=== PATIENT | male | born 1970 | race Caucasian/White ===

== ENCOUNTER → 2019-12-02 16:49 | Outpatient (CLI) | payer MEDICARE, SELFPAY ==
[2019-12-02 17:34] LABS: Basophils % 0.4 % (0.1-2.0); Eosinophils # 0.2 K/mm3 (0.0-0.4); Eosinophils % 1.6 % (0.1-12.0); Hematocrit 43.2 % (42.0-52.0); Hemoglobin 13.8 g/dL (14.1-18.0); Lymphocytes # 2.8 K/mm3 (0.7-4.5); Lymphocytes % 28.1 % (10-50); Mean Corpuscular HGB Conc 31.9 g/dL (31.8-35.4); Mean Corpuscular Volume 94.1 fl (80-94); Mean Platelet Volume 9.2 fl (7.4-10.4); Monocytes # 0.4 K/mm3 (0.1-1.0); Monocytes % 4.3 % (1.7-9.3); Neutrophils # 6.6 K/mm3 (1.8-7.8); Neutrophils % 65.7 % (37.0-80.0); Platelet Count 339 K/mm3 (142-424); Red Cell Distribution Width 13.7 % (11.5-17.5); White Blood Count 10.1 K/mm3 (4.8-10.8)
[2019-12-02 17:37] LABS: Chloride 101 mmol/L (98-107)
[2019-12-02 17:38] LABS: Potassium 4.5 mmoL/L (3.5-5.1); Sodium 141 mmol/L (136-145)
[2019-12-02 17:40] LABS: Alanine Aminotransferase 21 U/L (12-78); Alkaline Phosphatase 73 U/L (38-126); Aspartate Amino Transferase 30 U/L (17-59); Bilirubin,Total 0.3 mg/dl (0.2-1.3); Blood Urea Nitrogen 18 mg/dl (9-20); Estimated Glomerular Filt Rate 90 ml/min (>60); GFR (African American) 109 ML/MIN (>60)
[2019-12-02 17:41] LABS: Albumin Level 4.8 g/dl (3.5-5.0); Albumin/Globulin Ratio 1.7 (1.1-1.8); Anion Gap 15.5 mEq/L (5-15); Calcium 10.4 mg/dl (8.4-10.2); Carbon Dioxide 29 mmol/L (22.0-30.0); Chol/HDL Ratio 3.9 (1-3.5); Cholesterol 179 mg/dl (140-200); Globulin 2.8 g/dL (1.3-3.2); Glucose 83 mg/dl (74-100); HDL Cholesterol 46 mg/dl (40-60); Total Protein,Serum 7.6 g/dl (6.3-8.2); Triglycerides 86 mg/dl (30-150); Uric Acid 7.9 mg/dl (3.5-8.5); VLDL Cholesterol 17 mg/dL (0-40)
[2019-12-02 17:47] LABS: C-Reactive Protein 8.4 mg/L (0-4)
[2019-12-02 17:52] LABS: Direct LDL Cholesterol 110.63 mg/dL (100-129)
[2019-12-02 17:58] LABS: Free T4 (Free Thyroxine) 1.22 ng/dl (0.78-2.19)
[2019-12-02 18:12] LABS: Thyroid Stimulating Hormone 0.07 uIU/mL (0.465-4.68)
[2019-12-02 18:22] LABS: Erythrocyte Sedimentation Rate 15 mm/hr (0-15)
[2019-12-04 13:41] LABS: Anti-Centromere B Antibodies <0.2 AI (0.0-0.9); Anti-Jo-1 <0.2 AI (0.0-0.9); Anti-Smith Antibody <0.2 AI (0.0-0.9); Antichromatin Antibodies <0.2 AI (0.0-0.9); Antiscleroderma-70 Antibodies <0.2 AI (0.0-0.9); RNP Antibodies <0.2 AI (0.0-0.9); Sjogren's Anti-SS-A <0.2 AI (0.0-0.9); Sjogren's Anti-SS-B <0.2 AI (0.0-0.9)
[2019-12-04 15:44] LABS: Anti-DNA (DS) Ab Qn <1 IU/mL (0-9); PSA, Free 0.22 ng/mL; Prostate Specific Ag 0.4 ng/mL (0.0-4.0); RA Latex Turbid. <10.0 IU/mL (0.0-13.9); Vitamin D 25 Hydroxy 58.5 ng/mL (30.0-100.0)
[2019-12-05 04:41] LABS: Anti-Cyclic Citrullinated Pept 9 units (0-19)
[2019-12-07 14:05] LABS: Antinuclear Antibodies, IFA Negative (.)
== END ==
PROVIDERS: Visit Provider Emergency Medicine
DX: R53.83 Other fatigue (principal); E78.5 Hyperlipidemia, unspecified; I10 Essential (primary) hypertension; M54.9 Dorsalgia, unspecified; M25.50 Pain in unspecified joint; K21.9 Gastro-esophageal reflux disease without esophagitis; F32.9 Major depressive disorder, single episode, unspecified; Z72.0 Tobacco use
CPT/HCPCS: 80053; 80061; 82652; 84153; 84154; 84436; 84439; 84443; 84550; 85025; 85651; 86038; 86140; 86200; 86225; 86235; 86431

== ENCOUNTER → 2020-01-19 17:11 | Outpatient (CLI) | payer MEDICARE, SELFPAY ==
[2020-01-19 18:47] LABS: T4 (Thyroxine) 10.8 ug/dl (5.53-11.0)
[2020-01-19 19:01] LABS: Thyroid Stimulating Hormone 0.04 uIU/mL (0.465-4.68)
== END ==
PROVIDERS: Visit Provider Nurse Practitioner Family
DX: E78.00 Pure hypercholesterolemia, unspecified (principal); F32.9 Major depressive disorder, single episode, unspecified; R63.4 Abnormal weight loss
CPT/HCPCS: 84436; 84443

== ENCOUNTER → 2020-01-26 13:27 | Outpatient (CLI) | payer MEDICARE, SELFPAY ==
[2020-01-26 14:35] LABS: Thyroid Stimulating Hormone 0.08 uIU/mL (0.465-4.68)
== END ==
PROVIDERS: Visit Provider Emergency Medicine
DX: Z00.00 Encounter for general adult medical examination without abnormal findings (principal); E78.00 Pure hypercholesterolemia, unspecified; Z79.899 Other long term (current) drug therapy
CPT/HCPCS: 84443

== ENCOUNTER → 2020-01-28 10:04 | Outpatient (CLI) | payer MEDICARE, SELFPAY ==
--- NOTE | 2020-01-28 10:08 | XR_ITS ---
PROCEDURE: XR CHEST 2V CLINICAL HISTORY: tobacco use / weight loss COMPARISON: CXR CHEST(2 VIEWS-NOT PORTABLE) from 10/06/2015 CXR CHEST(2 VIEWS-NOT PORTABLE) from 01/31/2016 CXR CHEST(2 VIEWS-NOT PORTABLE) from 02/05/2016 CXR CHEST(2 VIEWS-NOT PORTABLE) from 05/11/2016 FINDINGS: The cardiomediastinal silhouette and pulmonary vascularity are within normal limits. The lungs are clear without infiltrates, suspicious nodules, or pleural effusions. There is hyperinflation consistent with COPD There is an azygos fissure as a normal variant. There is mild chronic wedging involving T7 IMPRESSION: COPD. No change with no acute finding Dictated by: Aristides Palafox MD 01/28/2020 11:16 Electronically signed by Aristides Palafox MD in [place] 01/28/2020 11:16
== END ==
PROVIDERS: PCP Emergency Medicine; Visit Provider Emergency Medicine
DX: R63.4 Abnormal weight loss (principal); Z72.0 Tobacco use
CPT/HCPCS: 71046

== ENCOUNTER → 2020-02-01 08:13 | Outpatient (CLI) | payer MEDICARE, SELFPAY ==
--- NOTE | 2020-02-01 08:13 | CT_ITS ---
PROCEDURE: CT CHEST WO CON CLINICAL INDICATION: tobacco use / weight loss COMPARISON: CXR CHEST(2 VIEWS-NOT PORTABLE) from 05/11/2016 TECHNIQUE: Axial images obtained with sagittal and coronal reformats. All CT scans at the facility use one or more dose reduction, viz: automated exposure control, ma/kV adjustment per patient size (including targeted exams where dose is matched to indication, i.e. head), or iterative reconstruction technique. FINDINGS: HEART AND MEDIASTINAL STRUCTURES: Unremarkable. LUNGS AND PLEURAL SPACES: COPD . There is an azygos fissure as a normal variant. There is evidence of old granulomatous disease. No lobar consolidation or collapse. There are 3 mm subpleural nodular opacities in the left upper lobe and right upper lobe nonspecific. On close inspection there is faint increased density of the pulmonary lobular units with sparing along the periphery of the christopher its. This is of questionable clinical significance. This pulmonary septa do not appear thickened. No lobar consolidation or collapse. BONY STRUCTURES: There is chronic wedging involving the T7 vertebral body with loss of height anteriorly of 50 percent UPPER ABDOMEN: Unremarkable. ADDITIONAL FINDINGS: No other significant abnormalities. IMPRESSION: 1. There is some hyperinflation. There is prominence of the anterior clear space. These findings may be related to COPD. 2. Faint increased density of the pulmonary lobules with sparing along the periphery. This is diffuse and is of questionable clinical significance and is without septal thickening with faint ground-glass attenuation and could be seen with edema, hypersensitivity pneumonitis, heart failure, nonspecific interstitial pneumonia, drug exposure/chemical exposure.. Dictated by: Aristides Palafox MD 02/02/2020 13:03 Electronically signed by Aristides Palafox MD in [place] 02/02/2020 13:03
== END ==
PROVIDERS: PCP Emergency Medicine; Visit Provider Emergency Medicine
DX: R63.4 Abnormal weight loss (principal); Z72.0 Tobacco use
CPT/HCPCS: 71250

== ENCOUNTER → 2020-02-04 10:29 | Outpatient (CLI) | payer MEDICARE, SELFPAY ==
--- NOTE | 2020-02-04 10:34 | MR_ITS ---
PROCEDURE: MR LUMBAR SPINE WO CON CLINICAL INDICATION: back pain Low back pain with bilateral leg pain numbness and tingling right worse than left COMPARISON: [facility]/O MRI-L-SPINE W/O from 02/11/2015 TECHNIQUE: Standard multiplanar multiecho sequences are performed without contrast. 3-D MIP and myelographic images are also rendered and reviewed FINDINGS: There is normal alignment. The spinal cord ends at the T12-L1 level. T12-L1, L1-L2 and L2-L3 have an unremarkable appearance. L3-L4: There is mild concentric bulging disc with mild bilateral foraminal narrowing. L4-5: Degenerate disc disease with bulging disc with mild facet and ligamentum hypertrophy with mild bilateral foraminal narrowing. There is a small annular fissure posteriorly L5-S1: Degenerate disc disease with bulging disc very slightly eccentric toward the left with minimal left paracentral disc protrusion which abuts the anterior medial aspect of the left S1 nerve root. Mild left lateral recess narrowing and mild bilateral foraminal narrowing. No canal stenosis or extruded herniated disc evident. IMPRESSION: 1. L3-L4: There is mild concentric bulging disc with mild bilateral foraminal narrowing. 2. L4-5: Degenerate disc disease with bulging disc with mild facet and ligamentum hypertrophy with mild bilateral foraminal narrowing. There is a small annular fissure posteriorly 3. L5-S1: Degenerate disc disease with bulging disc very slightly eccentric toward the left with minimal left paracentral disc protrusion which abuts the anterior medial aspect of the left S1 nerve root. Mild left lateral recess narrowing and mild bilateral foraminal narrowing. 4. Overall no significant change from the previous exam Dictated by: Aristides Palafox MD 02/05/2020 12:02 Electronically signed by Aristides Palafox MD in [place] 02/05/2020 12:02
== END ==
PROVIDERS: PCP Emergency Medicine; Visit Provider Emergency Medicine
DX: M54.9 Dorsalgia, unspecified (principal); M54.5 Low back pain
CPT/HCPCS: 72148; 76376

== ENCOUNTER → 2020-03-04 11:18 | Outpatient (CLI) | payer MEDICARE, SELFPAY ==
[2020-03-04 11:21] LABS: MANUAL DIFFERENTIAL MANUAL DIFFERENTIAL (MANUAL DIFF)
[2020-03-04 11:42] LABS: Basophils % 0.4 % (0.1-2.0); Eosinophils # 0.2 K/mm3 (0.0-0.4); Eosinophils % 1.8 % (0.1-12.0); Hematocrit 41.2 % (42.0-52.0); Hemoglobin 13.9 g/dL (14.1-18.0); Lymphocytes # 2.5 K/mm3 (0.7-4.5); Lymphocytes % 21.5 % (10-50); Mean Corpuscular HGB Conc 33.8 g/dL (31.8-35.4); Mean Corpuscular Hemoglobin 32.5 pg (27.0-31.2); Mean Corpuscular Volume 96.2 fl (80-94); Mean Platelet Volume 7.5 fl (7.4-10.4); Monocytes # 0.5 K/mm3 (0.1-1.0); Neutrophils # 8.3 K/mm3 (1.8-7.8); Neutrophils % 72.4 % (37.0-80.0); Platelet Count 297 K/mm3 (142-424); Red Blood Count 4.28 M/mm3 (4.60-6.20); Red Cell Distribution Width 13.9 % (11.5-17.5); White Blood Count 11.4 K/mm3 (4.8-10.8)
[2020-03-04 12:13] LABS: Eosinophils % 1 % (0-3); Lymphocytes % 25 % (10-50); Monocytes % 2 % (2-9); Neutrophils % 70 % (42-76); Platelet Estimate Normal; RBC Morphology Normal; Total Cells Counted 100
[2020-03-04 14:13] LABS: Alanine Aminotransferase 22 U/L (12-78); Albumin Level 4.7 g/dl (3.5-5.0); Albumin/Globulin Ratio 1.7 (1.1-1.8); Alkaline Phosphatase 71 U/L (38-126); Anion Gap 11.7 mEq/L (5-15); Aspartate Amino Transferase 34 U/L (17-59); Bilirubin,Total 0.3 mg/dl (0.2-1.3); Blood Urea Nitrogen 14 mg/dl (9-20); Calcium 10.2 mg/dl (8.4-10.2); Carbon Dioxide 34 mmol/L (22.0-30.0); Chloride 98 mmol/L (98-107); Estimated Glomerular Filt Rate 103 ml/min (>60); GFR (African American) 124 ML/MIN (>60); Globulin 2.7 g/dL (1.3-3.2); Glucose 106 mg/dl (74-100); Potassium 4.7 mmoL/L (3.5-5.1); Sodium 139 mmol/L (136-145); Total Protein,Serum 7.4 g/dl (6.3-8.2)
[2020-03-04 14:41] LABS: Thyroid Stimulating Hormone 0.22 uIU/mL (0.465-4.68)
[2020-03-05 07:31] LABS: Thyroid Peroxidase Antibodies <9 IU/mL (0-34)
[2020-03-07 14:39] LABS: Thyroid Stimulating Immunoglob <0.10 IU/L (0.00-0.55)
== END ==
PROVIDERS: Visit Provider Otolaryngology
DX: R63.4 Abnormal weight loss (principal); E05.90 Thyrotoxicosis, unspecified without thyrotoxic crisis or storm
CPT/HCPCS: 36415; 80053; 84439; 84443; 84445; 84481; 85007; 85014; 85018; 85048; 85049; 86376

== ENCOUNTER → 2020-03-09 12:45 | Outpatient (CLI) | payer MEDICARE, SELFPAY ==
--- NOTE | 2020-03-09 14:09 | US_ITS ---
PROCEDURE: US THYROID CLINICAL INDICATION: hyperthyroid COMPARISON: No exams were available for comparison FINDINGS: Right lobe: 4.1 x 1.61 cm. There is a mixed 3 mm nodule in the upper aspect right lobe. Questionable nodular area lower pole at 8 mm. This may only represent some heterogeneous echogenicity. Follow-up is suggested. Left lobe: 4.2 x 1.2 x 1.2 cm Isthmus: Unremarkable Additional findings: IMPRESSION: Questionable 8 mm nodule in the right. Suggest 6 month follow-up. 3 mm mixed nodule upper pole on the right otherwise negative Dictated by: Aristides Palafox MD 03/09/2020 15:21 Electronically signed by Aristides Palafox MD in [place] 03/09/2020 15:21
[2020-03-09 14:15] VITALS: PULSE 67; PULSE 70
== END ==
PROVIDERS: PCP Emergency Medicine; Visit Provider Emergency Medicine
DX: E05.90 Thyrotoxicosis, unspecified without thyrotoxic crisis or storm; J44.9 Chronic obstructive pulmonary disease, unspecified
CPT/HCPCS: 76536; 94060; 94618; 94640

== ENCOUNTER → 2020-09-09 15:10 | Outpatient (CLI) | payer MEDICARE, SELFPAY | PROVIDERS: PCP Emergency Medicine; Visit Provider Emergency Medicine | DX: R42 Dizziness and giddiness (principal) ==

== ENCOUNTER → 2020-11-30 13:40 | Outpatient (CLI) | payer MEDICARE, SELFPAY ==
[2020-11-30 13:51] LABS: Chloride 105 mmol/L (98-107); Sodium 143 mmol/L (136-145)
[2020-11-30 13:52] LABS: Potassium 4.4 mmoL/L (3.5-5.1)
[2020-11-30 13:54] LABS: Alanine Aminotransferase 18 U/L (12-78); Alkaline Phosphatase 73 U/L (38-126); Anion Gap 12.4 mEq/L (5-15); Aspartate Amino Transferase 28 U/L (17-59); Bilirubin,Total 0.4 mg/dl (0.2-1.3); Blood Urea Nitrogen 12 mg/dl (9-20); Carbon Dioxide 30 mmol/L (22.0-30.0); Estimated Glomerular Filt Rate 79 ml/min (>60); GFR (African American) 96 ML/MIN (>60)
[2020-11-30 13:55] LABS: Albumin Level 4.4 g/dl (3.5-5.0); Albumin/Globulin Ratio 1.6 (1.1-1.8); Calcium 9.5 mg/dl (8.4-10.2); Chol/HDL Ratio 3.6 (1-3.5); Cholesterol 168 mg/dl (140-200); Globulin 2.8 g/dL (1.3-3.2); Glucose 94 mg/dl (74-100); HDL Cholesterol 47 mg/dl (40-60); Total Protein,Serum 7.2 g/dl (6.3-8.2); Triglycerides 53 mg/dl (30-150); VLDL Cholesterol 11 mg/dL (0-40)
[2020-11-30 14:06] LABS: Direct LDL Cholesterol 107.69 mg/dL (100-129)
[2020-11-30 14:11] LABS: 25-OH Vitamin D, Total 23.3 ng/mL (30-100)
[2020-11-30 14:24] LABS: Basophils # 0.1 K/mm3 (0-0.2); Basophils % 0.8 % (0.1-2.0); Eosinophils # 0.2 K/mm3 (0.0-0.4); Eosinophils % 2.6 % (0.1-12.0); Hematocrit 40.7 % (42.0-52.0); Lymphocytes % 25.4 % (10-50); Mean Corpuscular HGB Conc 32.1 g/dL (31.8-35.4); Mean Corpuscular Volume 96.6 fl (80-94); Mean Platelet Volume 9.2 fl (7.4-10.4); Monocytes # 0.4 K/mm3 (0.1-1.0); Monocytes % 5.5 % (1.7-9.3); Neutrophils # 5.1 K/mm3 (1.8-7.8); Neutrophils % 65.8 % (37.0-80.0); Platelet Count 316 K/mm3 (142-424); Red Blood Count 4.21 M/mm3 (4.60-6.20); Red Cell Distribution Width 14.1 % (11.5-17.5); White Blood Count 7.7 K/mm3 (4.8-10.8)
[2020-11-30 14:26] LABS: Thyroid Stimulating Hormone 0.72 uIU/mL (0.465-4.68)
[2020-11-30 17:52] LABS: Erythrocyte Sedimentation Rate 15 mm/hr (0-15)
== END ==
PROVIDERS: Visit Provider Emergency Medicine
DX: R53.83 Other fatigue (principal); E78.00 Pure hypercholesterolemia, unspecified; E55.9 Vitamin D deficiency, unspecified
CPT/HCPCS: 80053; 80061; 82306; 84439; 84443; 85025; 85651

== ENCOUNTER → 2020-12-06 09:19 | Outpatient (CLI) | payer MEDICARE, SELFPAY ==
--- NOTE | 2020-12-06 09:25 | XR_ITS ---
PROCEDURE: XR HIP LT 2-3V W/PELVIS CLINICAL INDICATION: hip pain COMPARISON: CR XR HIP RT 2-3V W/PELVIS from 12/06/2020 FINDINGS: Left hip: No fracture or dislocation. A small lucency is present along the femoral neck laterally measuring 4 mm nonspecific. This is only seen on the abduction view. Right hip: Unremarkable. IMPRESSION: 1. Negative right hip. 2. Small lucency left femoral neck laterally. This is nonspecific. Consider follow-up confirm stability otherwise negative. Dictated by: Aristides Palafox MD 12/06/2020 16:25 Aristides Palafox MD in [place] 12/06/2020 16:25
== END ==
PROVIDERS: PCP Emergency Medicine; Visit Provider Emergency Medicine
DX: M25.552 Pain in left hip (principal); M25.551 Pain in right hip
CPT/HCPCS: 73502

== ENCOUNTER → 2020-12-09 08:14 | Outpatient (CLI) | payer MEDICARE, SELFPAY ==
--- NOTE | 2020-12-09 08:15 | US_ITS ---
PROCEDURE: US THYROID CLINICAL INDICATION: abnormal thyroid ultrasound 6 months ago Follow-up thyroid nodules COMPARISON: US US THYROID from 03/09/2020 FINDINGS: Right lobe: 4.2 x 1.4 x 1 cm. There is a small mixed nodule in the upper pole posteriorly 4 mm unchanged. Isoechoic nodular areas present in the mid polar region at 8 mm unchanged. Left lobe: 4.1 x 1.5 x 1.1 cm. Homogeneous echogenicity. Isthmus: Unremarkable Additional findings: IMPRESSION: Stable appearance of the thyroid gland. Hyperechoic nodules present on the right unchanged. No suspicious abnormalities apparent. Dictated by: Aristides Palafox MD 12/10/2020 10:07 Aristides Palafox MD in [place] 12/10/2020 10:07
== END ==
PROVIDERS: PCP Emergency Medicine; Visit Provider Emergency Medicine
DX: R93.89 Abnormal findings on diagnostic imaging of other specified body structures (principal)
CPT/HCPCS: 76536

== ENCOUNTER → 2021-03-15 07:45 | Outpatient (CLI) | payer MEDICARE, SELFPAY | PROVIDERS: PCP Emergency Medicine; Visit Provider Emergency Medicine | DX: M54.2 Cervicalgia (principal) ==

== ENCOUNTER → 2021-03-16 15:37 | Outpatient (CLI) | payer MEDICARE, SELFPAY ==
--- NOTE | 2021-03-16 15:37 | MR_ITS ---
PROCEDURE: MR CERVICAL SPINE WO CON CLINICAL INDICATION: neck pain Neck pain [id number]. Headaches. No injury or trauma. COMPARISON: No exams were available for comparison TECHNIQUE: Standard multiplanar multiecho sequences are performed without contrast. 3-D MIP and myelographic images are also rendered and reviewed FINDINGS: There is normal alignment. Craniocervical junction has an unremarkable appearance. C2-C3: Unremarkable. C3-C4: Minimal broad-based bulging disc with minimal central disc protrusion with mild bilateral lateral recess and foraminal narrowing. There is narrowing of the canal at this level at 10-11 mm. C4-C5: There is a small right paracentral disc protrusion without impingement. Borderline narrowing of the canal. C5-C6: There is a small broad-based left paracentral disc osteophyte complex causing mild left lateral recess and foraminal narrowing. Minimal right uncovertebral hypertrophy. C6-C7: Mild degenerative disc disease with minimal bulging disc. C7-T1: Unremarkable. IMPRESSION: 1. C3-C4: Minimal broad-based bulging disc with minimal central disc protrusion with mild bilateral lateral recess and foraminal narrowing. There is narrowing of the canal at this level at 10-11 mm. 2. C4-C5: There is a small right paracentral disc protrusion without impingement. Borderline narrowing of the canal. 3. C5-C6: There is a small broad-based left paracentral disc osteophyte complex causing mild left lateral recess and foraminal narrowing. Minimal right uncovertebral hypertrophy. 4. C6-C7: Mild degenerative disc disease with minimal bulging disc Dictated by: Aristides Palafox MD 03/17/2021 09:46 Aristides Palafox MD in [place] 03/17/2021 09:46
== END ==
PROVIDERS: PCP Emergency Medicine; Visit Provider Emergency Medicine
DX: M54.2 Cervicalgia (principal)
CPT/HCPCS: 72141; 76376

== ENCOUNTER 2021-06-06 22:30 | Emergency (ER) | payer MEDICARE, SELFPAY ==
--- NOTE | 2021-06-06 22:27 | ECG_ITS ---
APPROVED REPORT Exam: Resting ECG HR:67 bpm ECG Measurements Heart Rate 67 AXES TX 138 P 83 QRSd 90 QRS 67 QT 390 T 74 QTc 412 Conclusion Normal sinus rhythm Normal ECG Electronically signed by : Forrest Burgess MD 06/07/2021 07:28:21
[2021-06-06 22:30] VITALS: BP 155/95; PULSE 69; O2SAT 96
[2021-06-06 22:31] VITALS: BP 145/93; PULSE 71; RESP 16; TEMP 36.9; O2SAT 99; BMI 19.5
--- NOTE | 2021-06-06 22:42 | XR_ITS ---
PROCEDURE INFORMATION: Exam: XR Chest Exam date and time: 06/06/2021 10:42 PM Age: 50 years old Clinical indication: Smoker's cough; Chest pressure; Patient HX: Chest pain off and on for a month; Additional info: Cp TECHNIQUE: Imaging protocol: XR of the chest. Views: 2 views. COMPARISON: CT CHEST WO CON 02/01/2020 8:21 AM FINDINGS: Lungs: Incidentally noted azygos fissure. Hyperinflation suggesting COPD. No airspace consolidation. No pulmonary edema. Pleural spaces: No pleural effusion. No pneumothorax. Heart/Mediastinum: Normal heart size. Bones/joints: Chronic midthoracic wedge compression deformity. IMPRESSION: Hyperinflation suggesting COPD. No acute finding.
[2021-06-06 22:55] LABS: Basophils # 0.1 K/mm3 (0-0.2); Basophils % 0.8 % (0.1-2.0); Eosinophils # 0.3 K/mm3 (0.0-0.4); Eosinophils % 3.3 % (0.1-12.0); Hematocrit 40.7 % (42.0-52.0); Hemoglobin 13.3 g/dL (14.1-18.0); Lymphocytes # 3.4 K/mm3 (0.7-4.5); Lymphocytes % 33.2 % (10-50); Mean Corpuscular HGB Conc 32.7 g/dL (31.8-35.4); Mean Corpuscular Hemoglobin 31.3 pg (27.0-31.2); Mean Platelet Volume 7.2 fl (7.4-10.4); Monocytes # 0.5 K/mm3 (0.1-1.0); Monocytes % 5.2 % (1.7-9.3); Neutrophils # 5.8 K/mm3 (1.8-7.8); Neutrophils % 57.5 % (37.0-80.0); Platelet Count 293 K/mm3 (142-424); Red Blood Count 4.24 M/mm3 (4.60-6.20); White Blood Count 10.1 K/mm3 (4.8-10.8)
[2021-06-06 23:00] VITALS: BP 133/83; PULSE 71; O2SAT 100
[2021-06-06 23:00] LABS: Alanine Aminotransferase 17 U/L (12-78); Albumin Level 4.3 g/dl (3.5-5.0); Albumin/Globulin Ratio 1.5 (1.1-1.8); Alkaline Phosphatase 109 U/L (38-126); Anion Gap 12.8 mEq/L (5-15); Aspartate Amino Transferase 25 U/L (17-59); Blood Urea Nitrogen 14 mg/dl (9-20); Calcium 9.4 mg/dl (8.4-10.2); Carbon Dioxide 31 mmol/L (22.0-30.0); Chloride 101 mmol/L (98-107); Creatinine Clearance Estimated 79 mL/min (50-200); Estimated Glomerular Filt Rate 89 ml/min (>60); GFR (African American) 108 ML/MIN (>60); Globulin 2.8 g/dL (1.3-3.2); Glucose 90 mg/dl (74-100); Potassium 3.8 mmoL/L (3.5-5.1); Sodium 141 mmol/L (136-145); Total Protein,Serum 7.1 g/dl (6.3-8.2)
[2021-06-06 23:06] LABS: Bilirubin,Total 0.1 mg/dl (0.2-1.3)
[2021-06-06 23:19] LABS: Procalcitonin 0.037 ng/mL (0.0-2.0); Troponin I < 0.01 ng/ml (0.00-0.034)
--- NOTE | 2021-06-06 23:26 | [facility].EDCP ---
ED Disposition Clinical Impression: Unstable angina pectoris, Tobacco use, Hypercholesteremia COPD (chronic obstructive pulmonary disease) Qualifiers: COPD type: unspecified COPD Qualified Code(s): J44.9 - Chronic obstructive pulmonary disease, unspecified Disposition: Admitted as Observation Condition on Discharge: Serious - Critical Care Critical Care Time: No Attestation: On 06/06/21, the high probability of a clinically significant, sudden or life threatening deterioration of the following system(s) required my full and direct attention, intervention and personal management. The time I documented below is in addition to time spent performing reported procedures but includes the following listed in this critical care notation. Medical Decision Making - Medical Records Medical records reviewed: Yes: I reviewed the patient's medical records. - Drew Inquiry Pt receiving controlled substance: No Vital Signs: 06/06/21 22:31 Temperature 98.5 F Temperature Source Oral Pulse Rate [Right] 71 Respiratory Rate 16 Blood Pressure [Right Arm] 145/93 H Blood Pressure Mean [Right Arm] 110 02 Sat by Pulse Oximetry 99 - Lab Data Lab results reviewed: Yes: I reviewed the patient's lab results. Lab Results 06/06/21 22:30: WBC 10.1, RBC 4.24 L, Hgb 13.3 L, Hct 40.7 L, MCV 96.0 H, MCH 31.3 H, MCHC 32.7, RDW 13.0, Plt Count 293, MPV 7.2 L, Neut % (Auto) 57.5, Lymph % (Auto) 33.2, [place] % (Auto) 5.2, Eos % (Auto) 3.3, Baso % (Auto) 0.8, Neut # (Auto) 5.8, Lymph # (Auto) 3.4, [place] # (Auto) 0.5, Eos # (Auto) 0.3, Baso # (Auto) 0.1, ESR 20 H 06/06/21 22:30: Sodium 141, Potassium 3.8, Chloride 101, Carbon Dioxide 31 H, Anion Gap 12.8, BUN 14, Creatinine 0.90, Estimated Creat Clear 79, Estimated GFR 89, Est GFR ( Amer) 108, Glucose 90, Calcium 9.4, Total Bilirubin 0.1 L, AST 25, ALT 17, Alkaline Phosphatase 109, Troponin I < 0.01, C-Reactive Protein 2.0, Total Protein 7.1, Albumin 4.3, Globulin 2.8, Albumin/Globulin Ratio 1.5, Procalcitonin 0.037 Result diagrams: 06/06/21 22:30 06/06/21 22:30 Orders (Tests/Meds): ED MEDICATIONS Generic Name Dose Route Start Last Admin Trade Name Freq PRN Reason Stop Dose Admin Sodium Chloride 1,000 mls @ 999 mls/hr 06/06/21 22:45 06/06/21 23:26 Sod Chlor 0.9% 1000ml Bag IV 06/06/21 23:45 999 mls/hr .Q1H1M KASSANDRA Administration Discontinued Medications Generic Name Dose Route Start Last Admin Trade Name Freq PRN Reason Stop Dose Admin Aspirin 324 mg 06/06/21 22:43 06/06/21 23:26 Aspirin 81mg Chewable Tablet PO 06/06/21 22:44 324 mg ONCE ONE Administration Nitroglycerin 0.4 mg 06/06/21 22:43 06/06/21 23:29 Nitroglycerin 0.4mg Sl Tablet SL 06/06/21 22:44 0.4 mg ONCE ONE Administration ORDERS Category Date Time Status Rapid PCR Covid and Flu A/B Stat Lab 06/06/21 00:08 Received Troponin I Q3H Lab 06/07/21 01:45 Ordered Troponin I Q3H Lab 06/07/21 04:45 Ordered - Radiology Data #1 Image(s): Chest Image Reviewed: Yes I have reviewed radiologist's interpretation Preliminary Findings: Abnormal (copd) - ECG Data Tracing #1 Normal Sinus Rhythm: Yes Ischemic changes: non-specific ST-T wave changes Medical Decision Narrative: has what sds like unstable angina - pt with sig risk factors and needs admit and eval Chest Pain HPI - General Chief Complaint: Chest Pain Stated Complaint: chest pains,trimmers Time Seen by Provider: 06/06/21 23:00 Mode of Arrival: Ambulatory Source of Information: Patient, Medical Record Limitations: No Limitations Description of Symptoms (Recalled from ER Triage Doc. by RN): pt c/o chest pain @ intervals that been going on for month - History of Present Illness HPI narrative: this patient presents with episodes of lt ant chest pain over the last month increased in freq occur with activity and assoc with nausea and reports loses color with episodes and last about 10 minutes each
[2021-06-06 23:30] VITALS: BP 120/73; PULSE 70; O2SAT 97
[2021-06-07] VITALS (14 sets, daily range): BP systolic 95–133; BP diastolic 48–85; PULSE 53–78; RESP 16–18; TEMP 36.6; O2SAT 97–100
[2021-06-07 00:01] LABS: Erythrocyte Sedimentation Rate 20 mm/hr (0-15)
--- NOTE | 2021-06-07 00:06 | PC.NURSE ---
Bed assignment requested for admission for this patient. Pt admitted, will hold in ED at this time. ED Staff made aware.
[2021-06-07 00:16] LABS: Coronavirus 19, PCR Not Detected (NotDetected); Influenza A, PCR Not Detected (NotDetected); Influenza B, PCR Not Detected (NotDetected)
[2021-06-07 02:47] LABS: Troponin I < 0.01 ng/ml (0.00-0.034)
--- NOTE | 2021-06-07 05:21 | CA_ITS ---
APPROVED REPORT EXAM: Comprehensive 2D, Doppler, and color-flow Echocardiogram Vascular Ultrasound Technician: Carlene Fuentes RVT Ht: 5 ft 7 in Wt: 00lbs BSA: 0.00 BP: 145/93 mmHg Indications: CP,GERD,COPD,SMOKER,HLD 2D Dimensions LVOT 2.00 cm (M/F) 1.5-2.5 LA Volume 17.00 mL M-Mode Dimensions RVDd 2.23 cm (0.9-2.6) LA Diam 3.16 cm (1.9-4.0) LVDd 3.95 cm (3.5-5.7) Ao Diam 3.05 cm (2.0-3.7) LVDs 2.79 cm (3.5-5.7) IVSd 1.10 cm (0.6-1.1) PWd 0.87 cm (0.6-1.1) EF (Teich) 56.80% FS 29.40% EDV (Teich) 67.90 mL TAPSE 2.58 (<1.7) ESV (Teich) 29.30 mL LV Diastology E Decel Time 187.00 (160-240 msec) E/A Ratio 1.8 MED E' 9.60 (< 7 cm/sec) E'/MED E' Ratio 9.75 (>14) LAT E' 13.30 (<10 cm/sec) E/LAT E' Ratio 7.04 (>14) Aortic Valve AO Peak GR. 4.70 mmHg Mitral Valve MV E Max Pietro. 94.00 (40-130 cm/s) MV A Velocity 52.00 (40-130 cm/s) E/A Ratio 1.81 MV Decel. Time 187.00 (160-240 ms) MV PHT 55.00 ms Pulmonary Valve PV Peak Velocity 44.00 (50-150 cm/s) Tricuspid Valve TR P. Velocity 281.00 cm/s RAP Estimate 10.00 mmHg RVSP 41.50 mmHg Left Ventricle Left atrium is normal size, left ventricle is normal size, there is no concentric left ventricular hypertrophy, visually estimated ejection fraction 55% with no regional wall motion abnormality, diastolic parameters are within normal range. Right Ventricle Right atrium and right ventricle are normal size and contractility. Aortic Valve Aortic valve is grossly normal, there is no aortic stenosis or aortic insufficiency. Mitral Valve Mitral valve is grossly normal, there is trace mitral regurgitation. Tricuspid Valve Tricuspid valve grossly normal, there is trace tricuspid regurgitation, tricuspid regurgitation jet velocity is inadequate for calculation of the right ventricular systolic pressure. Pulmonic Valve Pulmonic valve is poorly visualized. Great Vessels Aortic root is normal size. Pericardium No significant pericardial effusion noted. Conclusion 1. Normal left ventricular size, preserved left ventricular systolic function, visually estimated ejection fraction 55% with no regional wall motion abnormality, diastolic parameters are within normal range. 2. Trace mitral and tricuspid regurgitation. 3. No significant pericardial effusion noted. Electronically signed by : Camron Claudio MD 06/08/2021 10:08:17
[2021-06-07 05:47] LABS: Chol/HDL Ratio 3.6 (1-3.5); Cholesterol 133 mg/dl (140-200); HDL Cholesterol 37 mg/dl (40-60); Magnesium 1.4 mg/dl (1.6-2.3); Triglycerides 68 mg/dl (30-150); VLDL Cholesterol 14 mg/dL (0-40)
[2021-06-07 05:58] LABS: Direct LDL Cholesterol 78.93 mg/dL (100-129)
[2021-06-07 06:00] LABS: Troponin I < 0.01 ng/ml (0.00-0.034)
--- NOTE | 2021-06-07 06:24 | PC.NURSE ---
Sonny GARCIA NOTIFIED OF CONSULT
--- NOTE | 2021-06-07 07:15 | PC.NURSE ---
felicia cartwright in ER speaking with Dr. Sterling about pt
--- NOTE | 2021-06-07 07:44 | HMH.CNCARD ---
History of Present Illness Consult date: 06/07/21 Requesting physician: Dean Sterling Consult reason: chest pain Chief complaint: Unstable angina Additional Medical History:: 1. Tobacco use, continued, 2 packs/day for 30 years A. COPD 2. History of coal mining for 21 years 3. Family history of early coronary artery disease in his mother in her 50s 4. Hyperlipidemia, on statin therapy 5. History of GERD History of present illness: 50-year-old white male with history of tobacco use, family history of heart disease in his mother and hyperlipidemia presented to the emergency department for complaint of chest pain. Patient states he has had these episodes of sharp stabbing chest pain followed by heaviness in the chest with radiation to the left arm and neck with exertion over the last 3 to 4 weeks. Symptoms usually resolve with rest after 5 to 10 minutes. Last evening symptoms occurred and lingered which prompted the patient to come to the ER for further evaluation. He was given a sublingual nitroglycerin with resolution of his symptoms. EKG is sinus rhythm with no acute ST segment changes and troponins thus far have been normal. Cardiology consulted for further evaluation and recommendations. Patient was seen in Dr. Sterling's office yesterday for evaluation of the symptoms and was ordered sublingual nitroglycerin for as needed use but with return of symptoms last evening came to the ER for further evaluation. [facility] History Medical History: Reports:: Anxiety, Chronic Obstructive Pulmonary Disease (COPD), Depression, Gastroesophageal Reflux Disease(GERD), Hyperlipidemia *Have you ever received a pneumonia vaccine?: No *Have you received a flu vaccine this season?: No Laterality Cases: Left: Arthroscopy Knee Other Surgeries: Yes: Other Amputation: No Fractures: No - *Social History Smoking Status: Current every day smoker Tobacco Type: cigarettes # Packs/Day (cigarettes): 1 Alcohol Intake: never Substance Use Type: opiates, former substance user *Occupational Status:: employed Housing: house Household Members: significant other *Travel in the last 8 weeks: None - Psychiatric History Pschychiatric History:: Reports:: Anxiety, Depression Family Hx:: Heart Attack, Diabetes, Hypertension, Hyperlipidemia, Kidney Disease, Stroke, Substance abuse, Alcoholism, Mental illness, Cancer Meds Home Medications Medication Instructions Recorded Confirmed Type Budesonide/Formoterol Fumarate 1 puff INHALATION DAILY 06/06/21 06/06/21 History [Budesonide-Formoterol 80-4.5] Duloxetine HCl [Cymbalta] See Rx Instructions .ROUTE .COMPLEX 06/06/21 06/06/21 History Mirtazapine See Rx Instructions .ROUTE .COMPLEX 06/06/21 06/06/21 History Pantoprazole Sodium See Rx Instructions .ROUTE .COMPLEX 06/06/21 06/06/21 History Simvastatin See Rx Instructions .ROUTE .COMPLEX 06/06/21 06/06/21 History albuterol sulfate 90 mcg/actuation 2 puff INHALATION TID PRN #8.5 g 06/06/21 06/06/21 Rx aerosol inhaler Allergies Allergy/AdvReac Type Severity Reaction Status Date / Time codeine [CODEINE] Allergy Mild Verified 06/06/21 11:38 Exam Vital signs and Labs for Last 24 Hours: Temp Pulse Resp BP Pulse Ox 98.5 F 53 L 16 104/61 L 99 06/06/21 22:31 06/07/21 05:30 06/06/21 22:31 06/07/21 05:30 06/07/21 05:30 Laboratory Results - last 24 hr 01/05/21 00:08: SARS-CoV-2 (PCR) Not detected, Influenza A Untype (PCR) Not detected, Influenza Type B (PCR) Not detected 06/06/21 22:30: WBC 10.1, RBC 4.24 L, Hgb 13.3 L, Hct 40.7 L, MCV 96.0 H, MCH 31.3 H, MCHC 32.7, RDW 13.0, Plt Count 293, MPV 7.2 L, Neut % (Auto) 57.5, Lymph % (Auto) 33.2, [place] % (Auto) 5.2, Eos % (Auto) 3.3, Baso % (Auto) 0.8, Neut # (Auto) 5.8, Lymph # (Auto) 3.4, [place] # (Auto) 0.5, Eos # (Auto) 0.3, Baso # (Auto) 0.1, ESR 20 H 06/06/21 22:30: Sodium 141, Potassium 3.8, Chloride 101, Carbon Dioxide 31 H, Anion Gap 12.8, BUN 14, Creatinine 0.90, Estimated Creat Clear 79, Estimat
--- NOTE | 2021-06-07 08:17 | HMH.PHAINT ---
MEDICATION RECONCILIATION COMPLETED USING EXTERNAL FILL HISTORY AND OFFICE VISIT.
--- NOTE | 2021-06-07 08:47 | PC.NURSE ---
spoke with Mayi in [facility] states is will be after approx 1130 today before pt will go to [facility]
--- NOTE | 2021-06-07 09:44 | HMH.HPDC ---
General - General Admission date:: 06/07/21 Discharge date: 06/07/21 *Admission Date: 06/07/21 *Chief complaint: chest pain *History of present illness: this pt presented to the ed with ongoing chst pain over the last month which had increased -his patient presents with episodes of lt ant chest pain over the last month increased in freq occur with activity and assoc with nausea and reports loses color with episodes and last about 10 minutes each - pt as admitted for eval by card as he has unstable angina [facility] History I have reviewed the patient's past medical history: Yes Medical History: Reports:: Anxiety, Chronic Obstructive Pulmonary Disease (COPD), Depression, Gastroesophageal Reflux Disease(GERD), Hyperlipidemia *Have you ever received a pneumonia vaccine?: No *Have you received a flu vaccine this season?: No Laterality Cases: Left: Arthroscopy Knee Other Surgeries: Yes: Other Amputation: No Fractures: No - *Social History Smoking Status: Current every day smoker Tobacco Type: cigarettes # Packs/Day (cigarettes): 1 Alcohol Intake: never Substance Use Type: opiates, former substance user *Occupational Status:: employed Housing: house Household Members: significant other *Travel in the last 8 weeks: None - Psychiatric History Pschychiatric History:: Reports:: Anxiety, Depression Family Hx:: Heart Attack, Diabetes, Hypertension, Hyperlipidemia, Kidney Disease, Stroke, Substance abuse, Alcoholism, Mental illness, Cancer Review of Systems - Review of Systems Review of systems:: pertinent systems reviewed and negative unless documented below - Constitutional Denies fever(s) - Eyes Denies change in vision - ENT Denies sore throat - *Cardiovascular Reports chest pain, Reports chest pain with activity, Reports radiating jaw, neck or arm pain - *Respiratory Denies cough - *Gastrointestinal Denies abdominal pain - *Genitourinary Denies blood in urine - *Musculoskeletal Denies joint pain - Integumentary/Breasts Denies rash - *Neurologic Denies localized weakness, Denies seizure-like activity - Psychiatric Denies thoughts of hurting/killing yourself Exam Vital signs and Labs for Last 24 Hours: Temp Pulse Resp BP Pulse Ox 98 F 78 16 123/74 100 06/07/21 09:36 06/07/21 09:36 06/07/21 09:36 06/07/21 09:36 06/07/21 08:00 Laboratory Results - last 24 hr 04/15/21 00:08: SARS-CoV-2 (PCR) Not detected, Influenza A Untype (PCR) Not detected, Influenza Type B (PCR) Not detected 06/06/21 22:30: WBC 10.1, RBC 4.24 L, Hgb 13.3 L, Hct 40.7 L, MCV 96.0 H, MCH 31.3 H, MCHC 32.7, RDW 13.0, Plt Count 293, MPV 7.2 L, Neut % (Auto) 57.5, Lymph % (Auto) 33.2, Republic % (Auto) 5.2, Eos % (Auto) 3.3, Baso % (Auto) 0.8, Neut # (Auto) 5.8, Lymph # (Auto) 3.4, Republic # (Auto) 0.5, Eos # (Auto) 0.3, Baso # (Auto) 0.1, ESR 20 H 06/06/21 22:30: Sodium 141, Potassium 3.8, Chloride 101, Carbon Dioxide 31 H, Anion Gap 12.8, BUN 14, Creatinine 0.90, Estimated Creat Clear 79, Estimated GFR 89, Est GFR ( Amer) 108, Glucose 90, Calcium 9.4, Total Bilirubin 0.1 L, AST 25, ALT 17, Alkaline Phosphatase 109, Troponin I < 0.01, C-Reactive Protein 2.0, Total Protein 7.1, Albumin 4.3, Globulin 2.8, Albumin/Globulin Ratio 1.5, Procalcitonin 0.037 06/07/21 01:58: Troponin I < 0.01 06/07/21 05:31: Troponin I < 0.01 06/07/21 05:31: Magnesium 1.4 L, Triglycerides 68, Cholesterol 133 L, LDL Cholesterol Direct 78.93 L, VLDL Cholesterol 14, HDL Cholesterol 37 L, Cholesterol/HDL Ratio 3.6 H I & O for Last 24 hours: Intake & Output 06/04/21 06/05/21 06/06/21 06/07/21 11:59 11:59 11:59 11:59 Weight 125 lb - Constitutional no acute distress - *Routine HEENT Exam Head: Present: normocephalic Eye: Present: EOMI, PERRL ENT: Present: mucous membranes dry - *Routine Neck Exam Absent: JVD - *Routine Respiratory Exam Present: prolonged expiratory phase, rhonchi - *Routine Cardiovascular Exam Present: RRR,
== END 2021-06-07 11:32 | disposition left against medical advice (07) ==
LOC: ER 22:34 → 2ND 06-07 00:39
PROVIDERS: Emergency Provider Emergency Medicine; PCP Emergency Medicine
DX: R07.9 Chest pain, unspecified (principal); F17.210 Nicotine dependence, cigarettes, uncomplicated; I20.8 Other forms of angina pectoris; J44.9 Chronic obstructive pulmonary disease, unspecified; Z20.822 Contact with and (suspected) exposure to COVID-19; E78.5 Hyperlipidemia, unspecified; K21.9 Gastro-esophageal reflux disease without esophagitis
CPT/HCPCS: 71046; 80053; 80061; 83735; 84145; 84484; 85025; 85651; 86140; 93005; 93306; 96365; 99283; C9803; U0003; U0005

== ENCOUNTER → 2021-08-16 06:57 | Outpatient (CLI) | payer MEDICARE, SELFPAY ==
--- NOTE | 2021-08-16 | CA_ITS ---
APPROVED REPORT Exam: Pharmacologic Technologist: Meme Ricketts Ht: 5 ft 7 in Wt: 119 lbs BSA: 1.62 m2 HR: 77 bpm BP: 146/96 mmHg Indications: Unstable Angina Medical History Medications: Simvastatin,,,,, Vitamin D3,,,,, Pantoprazole,,,,, Duoneb,,,,, Albuterol,,,,, DulOXETINE,,,,, Mirtazapine,,,,, Triazolam,,,,, Budesonide-Formoterol,,,,, Stress Test Details Test: LEXISCAN HR Resting HR: 74 bpm Max Heart Rate (APMHR): 170.136566 bpm Max HR Achieved: 101 bpm Target HR (85% APMHR): 144.944675 bpm % of APMHR: 59.41 Recovery HR: 77 bpm BP Resting BP: 142.0/98.0 mmHg Max BP: 147.0/88.0 mmHg Recovery BP: 146.0/96.0 mmHg ECG Resting ECG: Normal sinus rhythm Clinical Exercise duration: 04:00 min Highest Stage Achieved: Exercise capacity: 1.0 METs Stress ECG Conclusion Switched from exercise due to hip pain. Symptoms: Shortness of air. No chest pain. Arrhythmias/Ectopy: None ST-T Changes: No significant changes. Conclusion: Unremarkable Lexiscan stress. Myoview images reported separately. Test Summary REST . . . . . . . Resting REST 02:38 . . 74 . 142/ 98 . . Stage 1 . . . . . . . Myoview Injected Stage 1 01:00 . . 96 . . . . Stage 2 01:00 . . 92 . 138/ 87 . . Stage 3 01:00 . . 81 . 147/ 88 . . Stage 4 01:00 . . 79 . 138/ 89 . Stop exercise at 04:00 RECOVERY 01:00 . . 74 . 138/ 93 . . RECOVERY 02:00 . . 76 . 138/ 93 . . RECOVERY 03:00 . . 77 . 146/ 96 . . RECOVERY 03:18 . . 73 . 146/ 96 . . Electronically signed by : Camron Claudio MD 08/16/2021 20:03:21
--- NOTE | 2021-08-16 06:58 | NM_ITS ---
APPROVED REPORT Exam: Nuclear Stress Test Indication: Chest pain, SOB, High cholesterol, Family history, Tobacco use Patient Location: Outpatient Stress Tech: Meme Ricketts NM Tech:Nora Taylor, ARRT, RT (R)(N) Ht: 5 ft 7 in Wt: 125 lbs HR: 72 bpm BP: 142/98 mmHg BSA: 1.66 m2 BMI: 19.5 History: Chest pain, SOB, High cholesterol, Family history, Tobacco use Procedure: Patient received a 0.4 mg of intravenous Lexiscan, resting heart rate 72 bpm, resting blood pressure 142/98 mmHg, with Lexiscan maximum heart rate achived was 95 bpm which is Less than 85 % of the maximum predicted heart rate and blood pressure was 138/87 mmHg. With Lexiscan, patient denied any complaint of chest pain. Electrocardiogram Resting electrocardiogram showed sinus rhythm, with Lexiscan there is less than 1.[address] segment depression noted from the baseline EKG. The EKG portion of the Lexiscan is nondiagnostic. Cardiac Stress and Resting SPECT Images: Cardiac Stress and Resting SPECT images were obtained using technetium 99m Myoview 29.2 mCi stress and 10.74 mCi at rest. Gated SPECT for analysis of segmental wall motion and calculation of the ejection fraction also done. Cardiac stress and rest SPECT images showed uniform myocardial activity without segmental perfusion abnormality, compared right ejection fraction is 47% with no regional wall motion abnormality, right ventricle is normal size and contractility. Conclusion: 1. The EKG portion of the Lexiscan is nondiagnostic. 2. No scintigraphic evidence of reversible ischemia seen, compared right ejection fraction is 47% with no regional wall motion abnormality, right ventricle is normal size and contractility. 3. Normal Lexiscan Myoview study. Electronically signed by : Camron Claudio MD 08/16/2021 22:04:38
--- NOTE | 2021-08-16 09:16 | HMH.ITSHM ---
Current Home Medications as stated by this patient Hernan Gagnon or sales representative consultant. []GABAPENTIN ALBUTEROL TRIAZOLAM SIMVASTATIN PANTOPRAZOLE MIRTAZAPINE DULOXETINE VITAMIN D3 BUDESONIDE
== END ==
PROVIDERS: PCP Emergency Medicine; Visit Provider Emergency Medicine
DX: I20.0 Unstable angina (principal)
CPT/HCPCS: 78452; 93017; A9502; J2785

== ENCOUNTER 2021-10-05 11:27 | Emergency (ER) | payer MEDICARE, SELFPAY ==
[2021-10-05 11:28] VITALS: BP 160/99; PULSE 84; RESP 16; TEMP 36.6; O2SAT 99; BMI 21.1
--- NOTE | 2021-10-05 11:37 | XR_ITS ---
FINAL REPORT CLINICAL HISTORY: fall/pain FINDINGS: RIGHT HIP 2 views including an AP pelvis demonstrate no acute fracture. There is no dislocation. The visualized joint spaces are normally aligned. The soft tissues are unremarkable. IMPRESSION: No acute bony abnormality. Reviewed, Interpreted and Dictated by Andres Jean III, MD Transcribed by Arely Zhao Authenticated by Andres Jean III, MD on 10/05/2021 12:44:45 PM [facility]
--- NOTE | 2021-10-05 11:38 | XR_ITS ---
FINAL REPORT CLINICAL HISTORY: fall/pain COMPARISON: May 11, 2016 FINDINGS: RIGHT SHOULDER 3 views of the right shoulder were obtained. There is no acute fracture or dislocation. There are mild degenerative changes of the acromioclavicular joint. Soft tissues are unremarkable. IMPRESSION: Mild degenerative change of the acromioclavicular joint. Reviewed, Interpreted and Dictated by Andres Jean III, MD Transcribed by Arely Zhao Authenticated by Andres Jean III, MD on 10/05/2021 12:44:46 PM [facility]
--- NOTE | 2021-10-05 11:39 | PC.NURSE ---
Notified Rad of xray orders
--- NOTE | 2021-10-05 11:45 | HMH.EDGENADL ---
ED Disposition Clinical Impression: Right hip pain Right shoulder strain Qualifiers: Encounter type: initial encounter Qualified Code(s): S46.911A - Strain of unspecified muscle, fascia and tendon at shoulder and upper arm level, right arm, initial encounter Disposition: Home, Self-Care Condition on Discharge: Good Additional Instructions: follow up pcp Prescriptions: Cyclobenzaprine HCl [Cyclobenzaprine 5mg Tab*] 5 mg PO TIDP PRN #15 tab PRN Reason: Muscle Pain Transmission Status: Pending to [facility] Referrals: Dean Sterling MD [Primary Care Provider] - - Critical Care Critical Care Time: No Attestation: On 10/05/21, the high probability of a clinically significant, sudden or life threatening deterioration of the following system(s) required my full and direct attention, intervention and personal management. The time I documented below is in addition to time spent performing reported procedures but includes the following listed in this critical care notation. Medical Decision Making - Drew Inquiry Pt receiving controlled substance: No Vital Signs: 10/05/21 11:28 Temperature 97.9 F Temperature Source Oral Pulse Rate [Right Radial] 84 Respiratory Rate 16 Blood Pressure [Right Arm] 160/99 H Blood Pressure Mean [Right Arm] 119 Blood Pressure Source [Right Arm] Automatic Cuff Blood Pressure Position [Right Arm] Sitting 02 Sat by Pulse Oximetry 99 Oxygen Delivery Method Room Air Orders (Tests/Meds): ORDERS Category Date Time Status Hip XR right minimum 2 views [XR hip RT 2-3V w/pelvis] Exams 10/05/21 11:37 Taken Stat Shoulder XR right miminum 2 views [XR shoulder RT min Exams 10/05/21 11:38 Taken 2V] Stat General Adult HPI - General Chief complaint: PAIN Stated complaint: AO [id number] home fall,shoulder,back pain Time Seen by Provider: 10/05/21 11:27 Mode of Arrival: Ambulatory Limitations: No Limitations Description of Symptoms (Recalled from ER Triage Doc. by RN): Pt states that he tripped and fell down some stairs last night. Now c/o rt shoulder, rt hip/groin, and lower back pain - History of Present Illness HPI narrative: fall on steps yesterday, today with rt shoulder and hip pain Radiation: non-radiation Severity: moderate Quality: constant Relieving factors: immobilization Exacerbating factors: movement Associated symptoms: denies other symptoms - Related Data Home Medications Medication Instructions Recorded Confirmed Budesonide/Formoterol Fumarate 1 puff INHALATION DAILY 06/06/21 09/18/21 [Budesonide-Formoterol 80-4.5] Duloxetine HCl [Cymbalta] 30 mg PO BID 06/06/21 09/18/21 Mirtazapine 45 mg PO HS 06/06/21 09/18/21 Pantoprazole Sodium 40 mg PO DAILY 06/06/21 09/18/21 Simvastatin 40 mg PO HS 06/06/21 09/18/21 Cholecalciferol (Vitamin D3) 1,250 mcg PO WEEKLY 06/07/21 09/18/21 [Decara] Cholecalciferol (Vitamin D3) 25 mcg PO DAILY 06/07/21 09/18/21 [Vitamin D3] Ipratropium/Albuterol Sulfate 3 ml IH Q4-6H PRN 06/07/21 09/18/21 [Iprat-Albut 0.5-3(2.5) mg/3 ml] Triazolam [Halcion] 0.5 mg PO HS PRN 06/07/21 09/18/21 Previous Rx's Medication Instructions Recorded albuterol sulfate 90 mcg/actuation 2 puff INHALATION TID PRN #8.5 g 06/06/21 aerosol inhaler gabapentin 600 mg tablet 600 mg PO TID #90 tab 09/18/21 tramadol 50 mg tablet 50 mg PO BID #60 tab 09/18/21 Cyclobenzaprine HCl 5 mg PO TIDP PRN #15 tab 10/05/21 [Cyclobenzaprine 5mg Tab*] Allergies Allergy/AdvReac Type Severity Reaction Status Date / Time codeine [CODEINE] Allergy Mild Verified 09/18/21 10:42 [facility] History - Hepatitis A Screen Drug use history?: No High risk sexual behaviors?: No History of sexually transmitted infection?: No Currently employed?: No Childcare worker?: No Do you have indoor plumbing?: Yes Do you have electricity?: Yes Attestation statement:: This patient has been screened for Hepatitis A risk factors. Med
[2021-10-05 12:13] VITALS: BP 130/94; PULSE 66; RESP 14; TEMP 36.6; O2SAT 100
== END 2021-10-05 12:14 | disposition home or self-care (01) ==
PROVIDERS: Emergency Provider Emergency Medicine; PCP Emergency Medicine
DX: S46.911A Strain of unspecified muscle, fascia and tendon at shoulder and upper arm level, right arm, initial encounter (principal); W10.9XXA Fall (on) (from) unspecified stairs and steps, initial encounter; Y92.019 Unspecified place in single-family (private) house as the place of occurrence of the external cause; F41.8 Other specified anxiety disorders; K21.9 Gastro-esophageal reflux disease without esophagitis; E78.5 Hyperlipidemia, unspecified
CPT/HCPCS: 73030; 73502; 99282

== ENCOUNTER 2021-12-05 14:55 | Emergency (ER) | payer MEDICARE, SELFPAY ==
[2021-12-05 16:05] VITALS: BP 113/73; PULSE 76; RESP 16; TEMP 36.9; O2SAT 99; BMI 21.9
--- NOTE | 2021-12-05 16:08 | XR_ITS ---
PROCEDURE INFORMATION: Exam: XR Right Ribs with PA Chest Exam date and time: 12/05/2021 4:08 PM Age: 51 years old Clinical indication: Pain; Other: Rib; Additional info: R rib area pain, pain at the bottom of the ribs TECHNIQUE: Imaging protocol: XR Right ribs with PA chest. Views: 3 views COMPARISON: CR XR CHEST 2V 06/06/2021 10:58 PM FINDINGS: Airway: The airways are patent. Lungs: No acute interstitial or airspace disease. Pleural spaces: Unremarkable. No pleural effusion. No pneumothorax. Heart/Mediastinum: Heart is of normal size and morphology. Vasculature: Calcified aortic knob. Bones/joints: There is no evidence of joint dislocation. No aggressive osseous lesions. Irregular linear lucency in the anterolateral segment of the right 10th rib (image 1 series 6). No other acutely displaced fractures are identified. IMPRESSION: 1. Findings at the anterolateral segment of the right 10th rib could be artifactual or related to a minimally displaced fracture. If the patient continues with clinical symptoms, consider further evaluation with noncontrast CT. 2. No other acute pathology identified.
--- NOTE | 2021-12-05 16:12 | PC.NURSE ---
notified rad of xray order
[2021-12-05 16:55] VITALS: BP 128/84; PULSE 74; RESP 18; O2SAT 100; BMI 21.9
--- NOTE | 2021-12-05 17:12 | HMH.EDGENADL ---
ED Disposition Clinical Impression: Rib fracture Qualifiers: Encounter type: initial encounter Rib fracture type: single rib Fracture type: closed Laterality: right Qualified Code(s): S22.31XA - Fracture of one rib, right side, initial encounter for closed fracture Disposition: Home, Self-Care Condition on Discharge: Good Instructions: Rib Fracture Prescriptions: Hydrocodone/Acetaminophen [Hydrocodone-Acetamin 5-325 mg] 1 tab PO TID PRN #9 tab PRN Reason: Moderate To Severe Pain Transmission Status: Pending to [facility] Referrals: Dean Sterling MD [Primary Care Provider] - - Critical Care Critical Care Time: No Attestation: On 12/05/21, the high probability of a clinically significant, sudden or life threatening deterioration of the following system(s) required my full and direct attention, intervention and personal management. The time I documented below is in addition to time spent performing reported procedures but includes the following listed in this critical care notation. Medical Decision Making - Medical Records Medical records reviewed: Yes: I reviewed the patient's medical records. - Drew Inquiry Pt receiving controlled substance: No Vital Signs: 12/05/21 16:05 12/05/21 16:55 12/05/21 17:15 Temperature 98.4 F 98.4 F Temperature Source Oral Pulse Rate 74 Pulse Rate [Left Radial] 76 74 Respiratory Rate 16 18 18 Blood Pressure 128/84 Blood Pressure [Left Arm] 113/73 128/84 Blood Pressure Mean [Left Arm] 86 98 Blood Pressure Source [Left Arm] Automatic Cuff Blood Pressure Position [Left Arm] Sitting 02 Sat by Pulse Oximetry 99 100 Oxygen Delivery Method Room Air Room Air Room Air General Adult HPI - General Chief complaint: PAIN Stated complaint: rt side abd/rib pain Time Seen by Provider: 12/05/21 17:12 Mode of Arrival: Ambulatory Limitations: No Limitations Description of Symptoms (Recalled from ER Triage Doc. by RN): Pt c/o pain in R rib area, pt reports pain began approx 4 days ago, states pain has continued to worsen since it began. Pt reports has had nausea, denies v/d, fever or cough. Pt states no known injury. - History of Present Illness HPI narrative: rt rib pain after working under car at home 4 days ago Onset (ago): day(s) Radiation: non-radiation Severity: moderate Consistency: constant Relieving factors: none Exacerbating factors: movement Associated symptoms: denies other symptoms - Related Data Home Medications Medication Instructions Recorded Confirmed Budesonide/Formoterol Fumarate 1 puff INHALATION DAILY 06/06/21 09/18/21 [Budesonide-Formoterol 80-4.5] Duloxetine HCl [Cymbalta] 30 mg PO BID 06/06/21 09/18/21 Mirtazapine 45 mg PO HS 06/06/21 09/18/21 Simvastatin 40 mg PO HS 06/06/21 09/18/21 Ipratropium/Albuterol Sulfate 3 ml IH Q4-6H PRN 06/07/21 09/18/21 [Iprat-Albut 0.5-3(2.5) mg/3 ml] Triazolam [Halcion] 0.5 mg PO HS PRN 06/07/21 09/18/21 Previous Rx's Medication Instructions Recorded albuterol sulfate 90 mcg/actuation 2 puff INHALATION TID PRN #8.5 g 06/06/21 aerosol inhaler gabapentin 600 mg tablet 600 mg PO TID #90 tab 09/18/21 tramadol 50 mg tablet 50 mg PO BID #60 tab 09/18/21 Cyclobenzaprine HCl 5 mg PO TIDP PRN #15 tab 10/05/21 [Cyclobenzaprine 5mg Tab*] pantoprazole 40 mg tablet,delayed 40 mg PO DAILY #90 tab 11/02/21 release cholecalciferol (vitamin D3) 1,250 See Rx Instructions .ROUTE 12/01/21 mcg (50,000 unit) capsule .COMPLEX #4 capsule cholecalciferol (vitamin D3) 25 See Rx Instructions .ROUTE 12/01/21 mcg (1,000 unit) tablet .COMPLEX #30 tablet Hydrocodone/Acetaminophen 1 tab PO TID PRN #9 tab 12/05/21 [Hydrocodone-Acetamin 5-325 mg] Allergies Allergy/AdvReac Type Severity Reaction Status Date / Time codeine [CODEINE] Allergy Mild Verified 09/18/21 10:42 [facility] History - Hepatitis A Screen Drug use history?: Yes High risk sexual behaviors?: No History of sexua
[2021-12-05 17:15] VITALS: BP 128/84; PULSE 74; RESP 18; TEMP 36.9; O2SAT 100
== END 2021-12-05 18:54 | disposition home or self-care (01) ==
PROVIDERS: Emergency Provider Emergency Medicine; PCP Emergency Medicine
DX: S22.31XA Fracture of one rib, right side, initial encounter for closed fracture (principal); E78.5 Hyperlipidemia, unspecified; K21.9 Gastro-esophageal reflux disease without esophagitis; J44.9 Chronic obstructive pulmonary disease, unspecified; F32.A Depression, unspecified; F41.9 Anxiety disorder, unspecified; Z79.1 Long term (current) use of non-steroidal anti-inflammatories (NSAID); Z79.51 Long term (current) use of inhaled steroids; Z79.899 Other long term (current) drug therapy; Z88.5 Allergy status to narcotic agent; Z82.49 Family history of ischemic heart disease and other diseases of the circulatory system; Z83.3 Family history of diabetes mellitus; Z81.8 Family history of other mental and behavioral disorders; Z83.438 Family history of other disorder of lipoprotein metabolism and other lipidemia; Z81.1 Family history of alcohol abuse and dependence; Z84.1 Family history of disorders of kidney and ureter; Z81.3 Family history of other psychoactive substance abuse and dependence; Z80.9 Family history of malignant neoplasm, unspecified
CPT/HCPCS: 71101; 99283

== ENCOUNTER → 2021-12-25 12:41 | Outpatient (CLI) | payer MEDICARE, SELFPAY ==
--- NOTE | 2021-12-25 12:42 | US_ITS ---
FINAL REPORT CLINICAL HISTORY: Claudication,REST PAIN,SMOKER FINDINGS: ANKLE-BRACHIAL PRESSURE INDICES Pressure indices are as follows: RIGHT LOWER EXTREMITY: Ankle-brachial pressure index: 1.0 Comments: Normal pulses. Normal waveforms. LEFT LOWER EXTREMITY: Ankle-brachial pressure index: 1.0 Comments: Normal pulses. Normal waveforms. CONCLUSION: No evidence of significant obstructive peripheral vascular disease of the lower extremities Reviewed, Interpreted and Dictated by Andres Jean III, MD Transcribed by Arely Zhao Authenticated by Andres Jean III, MD on 12/25/2021 03:07:20 PM [facility]
== END ==
LOC: RT 12:42
PROVIDERS: PCP Emergency Medicine; Visit Provider Emergency Medicine
DX: I73.9 Peripheral vascular disease, unspecified (principal)
CPT/HCPCS: 93923

== ENCOUNTER → 2022-05-09 17:51 | Outpatient (CLI) | payer MEDICARE, SELFPAY ==
[2022-05-09 15:37] LABS: Amphetamine/Metha Screen,Urine Negative ng/ml (<1000)
[2022-05-09 15:38] LABS: Barbiturates Screen,Urine Negative ng/ml (<200)
[2022-05-09 15:39] LABS: Benzodiazepines Screen,Urine Negative ng/ml (<200)
[2022-05-09 15:40] LABS: Cannabinoid Screen,Urine Positive ng/ml (<50); Cocaine Screen,Urine Negative ng/ml (<300)
[2022-05-09 15:42] LABS: Methadone Screen,Urine Negative ng/ml (<300); Opiate Screen,Urine Negative ng/ml (<300)
[2022-05-09 15:43] LABS: Phencyclidine Screen,Urine Negative ng/ml (<25)
== END ==
PROVIDERS: PCP Emergency Medicine; Visit Provider Emergency Medicine
DX: F19.11 Other psychoactive substance abuse, in remission (principal); Z79.899 Other long term (current) drug therapy
CPT/HCPCS: 80305

== ENCOUNTER 2022-06-16 21:59 | Emergency (ER) | payer MEDICARE, SELFPAY ==
[2022-06-16 22:12] VITALS: BMI 22.7
--- NOTE | 2022-06-16 22:13 | HMH.EDGENADL ---
Discharge Plan Disposition Patient Disposition: Home, Self-Care Condition: Fair Chief Complaint: Wound/Laceration Prescriptions Prescriptions: No Action albuterol sulfate [Proventil HFA] 90 mcg/actuation HFA aerosol inhaler 2 puff INHALATION TID PRN (Reason: shortness of breath or wheezing) Qty: 8.5 0RF gabapentin 600 mg tablet 600 mg PO TID Qty: 90 1RF hydrocodone-acetaminophen 5-325 mg tablet 1 tab PO BID Qty: 60 0RF methylprednisolone [Medrol (Dharmesh)] 4 mg tablets,dose pack See Rx Instructions PO PER PKG DIR Qty: 21 0RF Rx Instructions: PO PER PKG DIR pantoprazole 40 mg tablet,delayed release (DR/EC) 40 mg PO DAILY Qty: 90 3RF Rx Instructions: TAKE ONE TABLET BY MOUTH ONCE A DAY mirtazapine 45 mg tablet See Rx Instructions .ROUTE .COMPLEX Qty: 30 2RF Dose Instruction: TAKE ONE TABLET BY MOUTH AT BEDTIME Rx Instructions: TAKE ONE TABLET BY MOUTH AT BEDTIME cholecalciferol (vitamin D3) 25 mcg (1,000 unit) tablet See Rx Instructions .ROUTE .COMPLEX Qty: 30 0RF Dose Instruction: TAKE ONE TABLET BY MOUTH ONCE A DAY Rx Instructions: TAKE ONE TABLET BY MOUTH ONCE A DAY cholecalciferol (vitamin D3) 1,250 mcg (50,000 unit) capsule See Rx Instructions .ROUTE .COMPLEX Qty: 4 0RF Dose Instruction: TAKE ONE CAPSULE BY MOUTH EVERY WEEK Rx Instructions: TAKE ONE CAPSULE BY MOUTH EVERY WEEK simvastatin 40 MG tablet 40 mg PO HS Rx Instructions: TAKE ONE TABLET BY MOUTH AT BEDTIME duloxetine 30 MG capsule,delayed release(DR/EC) 30 mg PO BID Rx Instructions: TAKE ONE CAPSULE BY MOUTH 2 TIMES A DAY budesonide-formoterol 10.2 GM HFA aerosol inhaler 1 puff INHALATION DAILY ipratropium-albuterol 3 ML solution for nebulization 3 ml IH Q4-6H PRN (Reason: Shortness Of Breath) Referrals Follow up/Referrals: Dean Sterling MD [Primary Care Provider] - See instructions Activity Restrictions/Add. Instructions Additional Instructions/Restrictions: You have been accepted by [facility] hand surgery team. Please present to [facility] for evaluation immediately after discharge. 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 Patient is whittling knife accidentally sliced off the ulnar aspect of his right thumb and stabbed his palm. Patient has numbness distal to the wound of the thumb however can feel pain with palpation of the bleeding wound itself. Wound is oozing blood upon arrival. Patient's last tetanus unknown. Denies other traumatic injuries at this time. Related Data Home Medications Medication Instructions Recorded Confirmed budesonide-formoterol HFA 80 1 puff inhalation DAILY Breathing 06/06/21 05/09/22 mcg-4.5 mcg/actuation aerosol problems inhaler duloxetine 30 mg capsule,delayed 30 mg PO BID Depression 06/06/21 05/09/22 release simvastatin 40 mg tablet 40 mg PO HS Cholesterol 06/06/21 05/09/22 ipratropium 0.5 mg-albuterol 3 mg 3 ml inhalation Q4-6H PRN 06/07/21 05/09/22 (2.5 mg base)/3 mL nebulization Shortness Of Breath soln Previous Rx's Medication Instructions Recorded albuterol sulfate 90 mcg/actuation 2 puff inhalation TID PRN 12/15/21 aerosol inhaler (Proventil HFA) shortness of breath or wheezing #8.5 grams mirtazapine 45 mg tablet See Rx Instructions .Route 04/26/22 .COMPLEX #30 tabs pantoprazole 40 mg tablet,delayed 40 mg PO DAILY GERD #90 tabs 08
--- NOTE | 2022-06-16 22:17 | XR_ITS ---
PROCEDURE INFORMATION: Exam: XR Left Hand Exam date and time: 06/16/2022 10:35 PM Age: 51 years old Clinical indication: Injury or trauma; Other: Cut with a knife; Bleeding/hemorrhage and knife wound and laceration; Hand; Left TECHNIQUE: Imaging protocol: Radiologic exam of the Left hand. Views: 3 or more views. COMPARISON: UEAJW/OLT MRI-UP EXT ANY JNT W/O-LT 01/11/2016 10:37 AM FINDINGS: Bones/joints: Degenerative changes involving the 1st carpal metacarpal joint with joint space narrowing and osteophyte formation. No acute fracture or dislocation. Chronic fracture deformity involving the 2nd metacarpal. Soft tissues: 2.4 mm metallic density in the soft tissues of the thenar aspect of the hand. IMPRESSION: 2.4 mm metallic density in the soft tissues of the thenar aspect of the hand. No underlying acute fracture or dislocation.
[2022-06-16 22:19] VITALS: BP 176/106; PULSE 57; RESP 16; TEMP 36.9; O2SAT 98; BMI 22.7
--- NOTE | 2022-06-16 22:31 | PC.NURSE ---
is currently speaking with [facility]
--- NOTE | 2022-06-16 22:36 | PC.NURSE ---
Patient is being sent via with [facility] to [facility] for evaluation. Called report and spoke to Raiaz in ER.
[2022-06-16 22:37] VITALS: BP 170/70; PULSE 62; RESP 17; TEMP 36.6; O2SAT 99
--- NOTE | 2022-06-16 22:37 | PC.NURSE ---
ICE CHIPS PROVIDED FOR COMFORT.
== END 2022-06-16 23:10 | disposition home or self-care (01) ==
PROVIDERS: Emergency Provider Emergency Medicine; PCP Emergency Medicine
DX: S68.021A Partial traumatic metacarpophalangeal amputation of right thumb, initial encounter (principal); W26.0XXA Contact with knife, initial encounter
CPT/HCPCS: 73130; 90471; 90714; 96372; 99283

== ENCOUNTER 2022-09-05 20:35 | Observation (INO) | payer MEDICARE, SELFPAY ==
--- NOTE | 2022-09-05 20:34 | ECG_ITS ---
APPROVED REPORT Exam: Resting ECG HR:71 bpm ECG Measurements Heart Rate 71 AXES GA 140 P 77 QRSd 79 QRS 62 QT 356 T 68 QTc 379 Conclusion SINUS RHYTHM NORMAL ECG UNCONFIRMED REPORT Electronically signed by : Forrest Burgess MD 09/07/2022 16:53:32
[2022-09-05 20:36] VITALS: BP 148/94; PULSE 81; RESP 16; TEMP 36.9; O2SAT 99; BMI 22.7
[2022-09-05 20:42] VITALS: BMI 22.7
--- NOTE | 2022-09-05 20:43 | XR_ITS ---
PROCEDURE INFORMATION: Exam: XR Chest Exam date and time: 09/05/2022 8:39 PM Age: 51 years old Clinical indication: Pain; Left-sided; Additional info: Cp TECHNIQUE: Imaging protocol: Radiologic exam of the chest. Views: 2 views. COMPARISON: CR XR RIBS RT MIN 3V W CXR1V 12/05/2021 4:21 PM FINDINGS: Lungs: Azygos fissure. Pleural spaces: Unremarkable. No pleural effusion. No pneumothorax. Heart/Mediastinum: Unremarkable. No cardiomegaly. Bones/joints: Chronic T7 fracture. IMPRESSION: No acute findings.
[2022-09-05 20:48] LABS: Coronavirus 19, PCR Not Detected (NotDetected); Influenza A, PCR Not Detected (NotDetected); Influenza B, PCR Not Detected (NotDetected)
[2022-09-05 20:58] LABS: Basophils # 0.1 K/mm3 (0-0.2); Eosinophils # 0.2 K/mm3 (0.0-0.4); Eosinophils % 1.6 % (0.1-12.0); Hematocrit 43.1 % (42.0-52.0); Hemoglobin 14.1 g/dL (14.1-18.0); Lymphocytes # 3.5 K/mm3 (0.7-4.5); Lymphocytes % 29.4 % (10-50); Mean Corpuscular HGB Conc 32.6 g/dL (31.8-35.4); Mean Corpuscular Hemoglobin 31.4 pg (27.0-31.2); Mean Corpuscular Volume 96.5 fl (80-94); Mean Platelet Volume 7.8 fl (7.4-10.4); Monocytes # 0.5 K/mm3 (0.1-1.0); Monocytes % 4.5 % (1.7-9.3); Neutrophils # 7.5 K/mm3 (1.8-7.8); Neutrophils % 63.5 % (37.0-80.0); Platelet Count 384 K/mm3 (142-424); Red Blood Count 4.47 M/mm3 (4.60-6.20); Red Cell Distribution Width 13.8 % (11.5-17.5); White Blood Count 11.9 K/mm3 (4.8-10.8)
[2022-09-05 21:00] LABS: Anion Gap 13.2 mEq/L (5-15); Blood Urea Nitrogen 20 mg/dl (9-20); Calcium 9.9 mg/dl (8.4-10.2); Carbon Dioxide 27 mmol/L (22.0-30.0); Chloride 104 mmol/L (98-107); Creatinine Clearance Estimated 74 mL/min (50-200); Estimated Glomerular Filt Rate 71 ml/min (>60); GFR (African American) 85 ML/MIN (>60); Glucose 75 mg/dl (74-100); Potassium 4.2 mmoL/L (3.5-5.1); Sodium 140 mmol/L (136-145)
[2022-09-05 21:22] LABS: Troponin I < 0.01 ng/ml (0.00-0.034)
--- NOTE | 2022-09-05 21:22 | PC.NURSE ---
Patient admitted to 200 dx of unstable angina to service of Dr. Lala.
[2022-09-05 21:30] VITALS: BP 126/83; PULSE 74; O2SAT 97
--- NOTE | 2022-09-05 21:31 | HMH.EDCP ---
Discharge Plan Disposition Patient Disposition: Admitted as Observation Clinical Impressions Clinical Impression: Tobacco use, Unstable angina pectoris Discharge ED Provider: Dean Sterling Chest Pain HPI General Chief Complaint: Chest Pain Stated Complaint: CP Time Seen by Provider: 09/05/22 20:40 Mode of Arrival: Ambulatory Source of Information: Patient, Spouse and Medical Record Limitations: No Limitations Description of Symptoms (Recalled from ER Triage Doc. by RN): pt c/o chest heaviness that radiates to back and down lt arm that comes and goes x 2 days History of Present Illness HPI narrative: pt presents to the ed with progressive chest pain over the last week both at rest and min exertion - pt with pain radiates lt upper ext - has sig risk factors and pain improved with ntg complaint: chest pain indicative of cardiac Onset (ago): day(s) Duration: intermittent Activity at onset: during rest, during exertion and light activity Pain location: substernal Severity: severe Severity scale (1-10): 8 Quality: tightness Pain radiation: LUE Exacerbating factors: exertion Associated symptoms: nausea and dyspnea Risk Factors for CAD: Hypertension, Hypercholesterolemia, Family Hx of CAD and Smoking Treatments prior to or on arrival for Cardiac Chest Pain: none APRIL Score for Non-Stemi Age of Patient: 50-59 years old Heart Rate: 70-89 bpm Systolic Blood Pressure: 140-159 mmHg Serum Creatinine: 0.80-1.19 mg/dl CHF [place] Class: I-No CHF Other Risk Factors: None Non-Stemi Risk Score: 81 Related Data Home Medications Medication Instructions Recorded Confirmed budesonide-formoterol HFA 80 1 puff inhalation DAILY Breathing 06/06/21 09/05/22 mcg-4.5 mcg/actuation aerosol problems inhaler ipratropium 0.5 mg-albuterol 3 mg 3 ml inhalation Q4-6H PRN 06/07/21 09/05/22 (2.5 mg base)/3 mL nebulization Shortness Of Breath soln cholecalciferol (vitamin D3) 1,250 See Rx Instructions .Route 09/05/22 09/05/22 mcg (50,000 unit) capsule .COMPLEX Supplement cholecalciferol (vitamin D3) 25 See Rx Instructions .Route 09/05/22 09/05/22 mcg (1,000 unit) tablet .COMPLEX Supplement duloxetine 30 mg capsule,delayed See Rx Instructions .Route 09/05/22 09/05/22 release .COMPLEX Depression gabapentin 600 mg tablet 600 mg PO TID Pain 09/05/22 09/05/22 hydrocodone 5 mg-acetaminophen 325 1 tab PO BID Pain 09/05/22 09/05/22 mg tablet mirtazapine 45 mg tablet See Rx Instructions .Route 09/05/22 09/05/22 .COMPLEX sleep simvastatin 40 mg tablet See Rx Instructions .Route 09/05/22 09/05/22 .COMPLEX High cholesterol Previous Rx's Medication Instructions Recorded albuterol sulfate 90 mcg/actuation 2 puff inhalation TID PRN 12/15/21 aerosol inhaler (Proventil HFA) shortness of breath or wheezing #8.5 grams pantoprazole 40 mg tablet,delayed 40 mg PO DAILY GERD #90 tabs 04/26/22 release Allergies Allergy/AdvReac Type Severity Reaction Status Date / Time codeine [CODEINE] Allergy Mild Verified 07/04/22 13:53 [facility] Disclaimer: The information contained in this section may have been updated after the patient was seen, as this information can be updated by other users. Social History Smoking Status: Current every day smoker tobacco type: cigarettes packs per day: 1 alcohol intake: never substance use type: former substance user and opiates current occupational status: employed Travel in the last 8 weeks: None household members: significant other housing: house ROS Obtained: Yes All systems reviewed & no additional complaints except as documented Cardiovascular Cardiovascular: Reports as per HPI, Reports chest pain, Reports chest pain at rest and Reports dyspnea on exertion Respiratory Respiratory: Reports dyspnea on exertion Physical Exam General General appearance: alert Head Head exam: normocephalic Eye Eye exam: Present PERRL a
--- NOTE | 2022-09-05 22:05 | EXP.HP ---
History of Present Illness *Admission Date: 09/05/22 *Reason for visit:: Chest Pain *History of present illness: Mr. Gagnon is a 51-year-old male with a past medical history that is positive for COPD, chronic tobacco use, Depression, Chronic Back Pain, Neuropathies, Hyperlipidemia and GERD. He presents to [facility] due to chest pain that he reports has been going on the last couple days. The patient was seen in the ER on admission. He reports that the pain starts in his left axillary region and radiates to the mid-sternal chest region and down the arm. He reports the the pain is associated with shortness of air and fatigue. He reports that rest helps with the pain but did not make the pain completely resolve. He reports that he took an Aspirin the day prior to presentation with no improvement. In the ER, EKG performed showed NSR with rate of [address] segment elevation or depression. Initial Troponin was <0.01. Cxray showed no acute Cardiopulmonary findings. The patient will be admitted with initial impression: Unstable Angina. Cardiology will be consulted to see. He will be given Heparin sub q, Troponin will be trended, Echo will be ordered for the am. The plan of care was discussed with the patient at bedside in the ER prior to his admission, the patient verbalized understanding and agreement with the plan of care. [facility] Disclaimer: The information contained in this section may have been updated after the patient was seen, as this information can be updated by other users. Medical History (Updated 09/06/22 @ 10:26 by Edna Carnes APRN) Back pain COPD (chronic obstructive pulmonary disease) GERD (gastroesophageal reflux disease) Hyperlipidemia Neuropathy Tobacco abuse Surgical History H/O knee surgery H/O wrist surgery Family History (Updated 09/06/22 @ 00:07 by Zoraida Luna RN) Heart disease Social History Smoking Status: Current every day smoker tobacco type: cigarettes packs per day: 1 alcohol intake: never substance use type: former substance user and opiates current occupational status: employed Travel in the last 8 weeks: None household members: significant other housing: house Review of Systems Review of Systems Review of systems:: unable to obtain Constitutional Constitutional: Reports fatigue Eyes Eyes: Reports system reviewed and no additional complaints, except as documented ENT Ears, Nose, Mouth, and Throat: Reports system reviewed and no additional complaints, except as documented *Cardiovascular Cardiovascular: Reports chest pain, Reports chest pain at rest, Reports chest pain with activity and Reports dyspnea *Respiratory Respiratory: Reports dyspnea *Gastrointestinal Gastrointestinal: Reports system reviewed and no additional complaints, except as documented *Genitourinary Genitourinary: Reports system reviewed and no additional complaints, except as documented *Musculoskeletal Musculoskeletal: Reports system reviewed and no additional complaints, except as documented Integumentary/Breasts Skin/Breast: Reports system reviewed and no additional complaints, except as documented *Neurologic Neurologic: Reports system reviewed and no additional complaints, except as documented Psychiatric Psychiatric: Reports system reviewed and no additional complaints, except as documented Endocrine Endocrine: Reports fatigue Hematologic/Lymphatic Hematologic/Lymphatic: Reports system reviewed and no additional complaints, except as documented Allergic/Immunologic Allergic/Immunologic: Reports system reviewed and no additional complaints, except as documented Meds Home Medications and Allergies Home Medications Medication Instructions Recorded Confirmed Type budesonide-formoterol HFA 80 1 puff inhalation DAILY COPD 06/06/21 09/05/22 History mcg-4.5 m
[2022-09-05 22:18] VITALS: BP 124/85; PULSE 70; PULSE 71; RESP 16; TEMP 36.9; O2SAT 98
[2022-09-05 22:35] LABS: D-Dimer 0.65 ug/mL (0.0-0.5)
[2022-09-05 22:48] VITALS: PULSE 70
[2022-09-05 22:50] VITALS: BP 141/87; PULSE 63; RESP 18; TEMP 36.7; O2SAT 97; BMI 20.5
--- NOTE | 2022-09-05 22:55 | CT_ITS ---
PROCEDURE INFORMATION: Exam: CTA Chest With Contrast Exam date and time: 09/05/2022 11:15 PM Age: 51 years old Clinical indication: Abnormal findings; Abnormal diagnostic tests; Elevated d-dimer; Additional info: Elevated d-dimer, chest pain, SOA TECHNIQUE: Imaging protocol: Computed tomographic angiography of the chest with contrast. 3D rendering (Not supervised by radiologist): MIP and/or 3D reconstructed images were created by the technologist. Radiation optimization: All CT scans at this facility use at least one of these dose optimization techniques: automated exposure control; mA and/or kV adjustment per patient size (includes targeted exams where dose is matched to clinical indication); or iterative reconstruction. Contrast material: ISOVUE; Contrast volume: 70 ml; Contrast route: INTRAVENOUS (IV); COMPARISON: CT CHEST WO CON 02/01/2020 8:21 AM FINDINGS: Pulmonary arteries: No pulmonary emboli. Aorta: The aorta demonstrates mild atherosclerotic disease. Renal arteries: Incidental note is made of 2 right renal arteries. Lungs: Azygos fissure. Bibasilar atelectasis. Pleural spaces: Unremarkable. No pneumothorax. No pleural effusion. Heart: Unremarkable. No cardiomegaly. No pericardial effusion. Lymph nodes: Unremarkable. No enlarged lymph nodes. Bones/joints: Chronic T7 fracture. Old right rib fractures. Soft tissues: Unremarkable. Other findings: Stigmata of old granulomatous disease. IMPRESSION: No pulmonary emboli.
--- NOTE | 2022-09-05 23:16 | PC.NURSE ---
pt to CT at this time
[2022-09-06] VITALS (14 sets, daily range): BP systolic 104–156; BP diastolic 66–93; PULSE 57–69; RESP 16–20; TEMP 36.5–36.7; O2SAT 95–99; BMI 20.7
[2022-09-06 00:45] LABS: Troponin I < 0.01 ng/ml (0.00-0.034)
[2022-09-06 03:36] LABS: Troponin I < 0.01 ng/ml (0.00-0.034)
--- NOTE | 2022-09-06 04:00 | PC.NURSE ---
Pt admitted this shift. A&OX4. LS clear. No C/O chest pain since admission. NSR on tele, no ST elevation noted. HR 50s-60s. Distal pulses strong, +2. No skin issues noted. Remains NPO since midnight. Nitro paste remains on chest, BP stable. Ambulates to BR independently and tolerates well. Pt showered this shift and hair at groin and radial site shaved.
--- NOTE | 2022-09-06 05:38 | PC.NURSE ---
pt refusing morning labs and vanc at this time. Will re-attempt at 0600 per pts request.
--- NOTE | 2022-09-06 06:00 | CA_ITS ---
APPROVED REPORT EXAM: Comprehensive 2D, Doppler, and color-flow Echocardiogram [employer] Interpreter: Nayana Esteban CRT Ht: 5 ft 7 in Wt: 145lbs BSA: 1.76 BP: 126/83 mmHg Indications: Chest Pain, COPD, Shortness of Breath, Fatigue, Hyperlipidemia 2D Dimensions LVOT 1.90 cm (M/F) 1.5-2.5 LA Volume 23.40 mL LA Volume Index 12.90 mL/m2 (M/F) 16-34 M-Mode Dimensions RVDd 2.23 cm (0.9-2.6) LA Diam 2.44 cm (1.9-4.0) LVDd 4.38 cm (3.5-5.7) Ao Diam 4.00 cm (2.0-3.7) LVDs 2.55 cm (3.5-5.7) IVSd 1.42 cm (0.6-1.1) PWd 1.01 cm (0.6-1.1) EF (Teich) 73.00% FS 41.80% EDV (Teich) 86.80 mL TAPSE 2.52 (<1.7) ESV (Teich) 23.40 mL LV Diastology E Decel Time 198.00 (160-240 msec) E/A Ratio 1.48 MED E' 8.90 (< 7 cm/sec) MED A' 10.00 cm/s E'/MED E' Ratio 7.66 (>14) LAT E' 10.50 (<10 cm/sec) LAT A' 10.40 cm/s E/LAT E' Ratio 6.50 (>14) Aortic Valve AO Peak GR. 4.40 mmHg Mitral Valve MV A Velocity 46.00 (40-130 cm/s) E/A Ratio 1.48 MV Decel. Time 198.00 (160-240 ms) Pulmonary Valve PV Peak Velocity 87.00 (50-150 cm/s) Tricuspid Valve TR P. Velocity 327.00 cm/s RAP Estimate 10.00 mmHg RVSP 52.90 mmHg Left Ventricle Left atrium is normal size, left ventricle is normal size, estimated ejection fraction 55% with no regional wall motion abnormality, diastolic parameters are within normal range. Right Ventricle Right atrium and right ventricle are normal size and contractility. Aortic Valve Aortic valve is minimally thickened and fibrosed there is no aortic stenosis or aortic insufficiency. Mitral Valve Mitral valve is grossly normal, there is trace mitral regurgitation Tricuspid Valve Tricuspid valve grossly normal, there is trace tricuspid regurgitation, tricuspid regurgitation jet velocity is inadequate for calculation of the right ventricular systolic pressure. Pulmonic Valve Pulmonic valve is poorly visualized. Great Vessels Aortic root is normal size. Inferior vena cava is normal size with normal inspiratory collapse. Pericardium No significant pericardial effusion noted. Conclusion 1. Normal left ventricular size preserved left ventricular systolic function, estimated ejection fraction 55% with no regional wall motion abnormality, diastolic parameters are within normal range. 2. Trace mitral and tricuspid regurgitation. 3. No significant pericardial effusion noted. 4. Inferior vena cava is normal size with normal inspiratory collapse. Electronically signed by : Camron Claudio MD 09/07/2022 08:42:34
--- NOTE | 2022-09-06 07:14 | HMH.PHAINT1 ---
Pharmacy Intervention Comments: Medication reconciliation completed via chart review and external fill history. -Lala Haque, PharmD Candidate 2022
[2022-09-06 07:44] LABS: Chol/HDL Ratio 4.6 (1-3.5); Cholesterol 198 mg/dl (140-200); HDL Cholesterol 43 mg/dl (40-60); Triglycerides 139 mg/dl (30-150); VLDL Cholesterol 28 mg/dL (0-40)
--- NOTE | 2022-09-06 09:07 | IR_ITS ---
APPROVED REPORT Patient Location: Inpatient PROCEDURES Left heart catheterization Left ventriculogram Selective coronary angiogram INDICATION Unstable angina with numerous risk factors for coronary disease Informed consent was obtained prior to the procedure. COMPLICATIONS None Estimated Blood Loss: Less than 10 ML TECHNIQUE One percent lidocaine used to anesthetize the right anterior aspect of the wrist. The right radial artery was accessed via the Seldinger technique. A 6 Telugu sheath was placed in the right radial artery. 2.5 mg of verapamil, 800 mcg of nitroglycerin, 1mg Lidocaine and 5000 U Heparin were given through the arterial sheath. The papa catheter was also used to perform left heart catheterization, left ventriculogram and selective coronary angiogram. At the end of the procedure the sheath was removed good hemostasis was achieved using Traclet band, patient was transferred to the postop holding area in stable condition. ANGIOGRAPHIC RESULTS The left main artery Normal The left anterior descending artery As proximal 10% luminal irregularities with a mid vessel 10 to 20% luminal irregularity The circumflex artery Dominant with mild 10% luminal irregularity The right coronary artery Nondominant normal The NO ventriculogram reveals Normal 65% The left ventricular end-diastolic pressure 10 mmHg IMPRESSION Mild nonflow limiting coronary disease involving the LAD and circumflex artery as described above Normal ejection fraction Normal left ventricular end-diastolic pressure PLAN 1. Evaluation of noncardiac chest pain 2. Aggressive risk factor modification Electronically signed by : Clifton Medina MD 09/06/2022 13:34:38
--- NOTE | 2022-09-06 10:20 | EXP.CARD.CON ---
History of Present Illness History of Present Illness Consult date: 09/06/22 Consult reason: chest pain Chief complaint: Chest pain Additional Medical History:: Significant past medical history: Chronic tobacco use Depression Chronic back pain Neuropathies Hyperlipidemia GERD Tobacco user current 2 pack/day smoker greater than 20 years Hyperlipidemia History of present illness: 51-year-old white male with above past medical history presented to ER with complaints of chest pain x2 days. Patient reports intermittent chest pain starting in left axillary region and radiating to midsternal chest and down left arm, intermittently x2 days, associated with shortness of breath, present at rest exacerbated with activity. Initial ER EKG showed normal sinus rhythm with a rate of 65 with no acute ischemic changes noted. Serial troponins negative. Patient did have an elevated D-dimer prompting a CTA of his chest which came back negative for PE. X-ray was negative for acute cardiopulmonary process. Patient continued to have chest pain at rest so was admitted for unstable angina and cardiology evaluation. Patient endorses history of shortness of breath with minimal activity. Preliminary echo report shows an EF of 55 with mild MR. PFSH [facility] Disclaimer: The information contained in this section may have been updated after the patient was seen, as this information can be updated by other users. Medical History (Updated 09/06/22 @ 10:26 by Edna Carnes APRN) Back pain COPD (chronic obstructive pulmonary disease) GERD (gastroesophageal reflux disease) Hyperlipidemia Neuropathy Tobacco abuse Surgical History H/O knee surgery H/O wrist surgery Family History (Updated 09/06/22 @ 00:07 by Zoraida Luna RN) Other Heart disease Social History Smoking Status: Current every day smoker tobacco type: cigarettes packs per day: 1 alcohol intake: never substance use type: former substance user and opiates current occupational status: employed Travel in the last 8 weeks: None household members: significant other housing: house Review of Systems Review of Systems Review of systems:: pertinent systems reviewed and negative unless documented below Constitutional Constitutional: Reports system reviewed and no additional complaints, except as documented *Cardiovascular Cardiovascular: Reports chest pain and Reports dyspnea *Respiratory Respiratory: Reports dyspnea *Gastrointestinal Gastrointestinal: Reports system reviewed and no additional complaints, except as documented *Neurologic Neurologic: Reports system reviewed and no additional complaints, except as documented and Denies confusion Psychiatric Psychiatric: Reports system reviewed and no additional complaints, except as documented and Denies confusion Exam Data for Last 24 hours Vital signs and Labs for Last 24 Hours: Temp Pulse Resp BP Pulse Ox 97.9 F 60 18 116/78 97 09/06/22 08:00 09/06/22 08:00 09/06/22 08:00 09/06/22 08:00 09/06/22 08:00 Laboratory Results - last 24 hr 09/05/22 20:38: SARS-CoV-2 (PCR) Not detected, Influenza A Untype (PCR) Not detected, Influenza Type B (PCR) Not detected 09/05/22 20:40: WBC 11.9 H, RBC 4.47 L, Hgb 14.1, Hct 43.1, MCV 96.5 H, MCH 31.4 H, MCHC 32.6, RDW 13.8, Plt Count 384, MPV 7.8, Neut % (Auto) 63.5, Lymph % (Auto) 29.4, [place] % (Auto) 4.5, Eos % (Auto) 1.6, Baso % (Auto) 1.0, Neut # (Auto) 7.5, Lymph # (Auto) 3.5, [place] # (Auto) 0.5, Eos # (Auto) 0.2, Baso # (Auto) 0.1 09/05/22 20:40: Sodium 140, Potassium 4.2, Chloride 104, Carbon Dioxide 27, Anion Gap 13.2, BUN 20, Creatinine 1.10, Estimated Creat Clear 74, Estimated GFR 71, Est GFR ( Amer) 85, Glucose 75, Calcium 9.9, Troponin I < 0.01 09/05/22 20:40: D-Dimer 0.65 H 09/06/22 00:15: Troponin I < 0.01 09/06/22 03:00: Troponin I < 0.01
--- NOTE | 2022-09-06 14:27 | EXP.DC.SUM ---
General Admission date:: 09/05/22 Discharge date: 09/06/22 HPI HPI HPI: Mr. Gagnon is a 51-year-old male with a past medical history that is positive for COPD, chronic tobacco use, Depression, Chronic Back Pain, Neuropathies, Hyperlipidemia and GERD. [facility] to chest pain that he reports has been going on the last couple days. The patient was seen in the ER on admission. He reports that the pain starts in his left axillary region and radiates to the mid-sternal chest region and down the arm. He reports the the pain is associated with shortness of air and fatigue. He reports that rest helps with the pain but did not make the pain completely resolve. He reports that he took an Aspirin the day prior to presentation with no improvement. In the ER, EKG performed showed NSR with rate of [address] segment elevation or depression. Initial Troponin was <0.01. Cxray showed no acute Cardiopulmonary findings. The patient will be admitted with initial impression: Unstable Angina. Cardiology will be consulted to see. He will be given Heparin sub q, Troponin will be trended, Echo will be ordered for the am. The plan of care was discussed with the patient at bedside in the ER prior to his admission, the patient verbalized understanding and agreement with the plan of care. Hospital Course Hospital Course Hospital Course: 51-year-old male admitted for unstable angina. Monitored overnight with stable EKG, no ischemic changes, and negative troponins x3. Cardiology evaluated in the morning. Taken for left heart cath. Findings as below. At this time patient remains hemodynamically stable. Needs medical management and work-up for other causes of chest pain as an outpatient. Stable for discharge home. Meds sent to [facility]. Follow-up with cardiology and PCP in the coming weeks. ANGIOGRAPHIC RESULTS The left main artery Normal The left anterior descending artery As proximal 10% luminal irregularities with a mid vessel 10 to 20% luminal irregularity The circumflex artery Dominant with mild 10% luminal irregularity The right coronary artery Nondominant normal The NO ventriculogram reveals Normal 65% The left ventricular end-diastolic pressure 10 mmHg IMPRESSION Mild nonflow limiting coronary disease involving the LAD and circumflex artery as described above Normal ejection fraction Normal left ventricular end-diastolic pressure PLAN 1. Evaluation of noncardiac chest pain 2. Aggressive risk factor modification Card meds for dc home Aspirin 81mg PO QD Lipitor Crestor 40mg PO QD metoprolol 12.5mg PO BID. Exam Data for Last 24 hours Vital signs and Labs for Last 24 Hours: Temp Pulse Resp BP Pulse Ox 98.1 F 62 20 139/87 95 09/06/22 13:15 09/06/22 13:44 09/06/22 13:44 09/06/22 13:44 09/06/22 13:44 Laboratory Results - last 24 hr 09/05/22 20:38: SARS-CoV-2 (PCR) Not detected, Influenza A Untype (PCR) Not detected, Influenza Type B (PCR) Not detected 09/05/22 20:40: WBC 11.9 H, RBC 4.47 L, Hgb 14.1, Hct 43.1, MCV 96.5 H, MCH 31.4 H, MCHC 32.6, RDW 13.8, Plt Count 384, MPV 7.8, Neut % (Auto) 63.5, Lymph % (Auto) 29.4, [place] % (Auto) 4.5, Eos % (Auto) 1.6, Baso % (Auto) 1.0, Neut # (Auto) 7.5, Lymph # (Auto) 3.5, [place] # (Auto) 0.5, Eos # (Auto) 0.2, Baso # (Auto) 0.1 09/05/22 20:40: Sodium 140, Potassium 4.2, Chloride 104, Carbon Dioxide 27, Anion Gap 13.2, BUN 20, Creatinine 1.10, Estimated Creat Clear 74, Estimated GFR 71, Est GFR ( Amer) 85, Glucose 75, Calcium 9.9, Troponin I < 0.01 09/05/22 20:40: D-Dimer 0.65 H 09/06/22 00:15: Troponin I < 0.01 09/06/22 03:00: Troponin I < 0.01 09/06/22 06:47: Triglycerides 139, Cholesterol 198, LDL Cholesterol Direct 110.70, VLDL Cholesterol 28, HDL Cholesterol 43, Cholesterol/HDL Ratio 4.6 H I & O for Last 24 hours: Intake & Output 09/03/22 09/04/22 09/05/22 09/06/22 23:59 23:59 23:59 23:59 Output Total 0 / 0 Balance
--- NOTE | 2022-09-06 15:20 | HMH.PHAINT1 ---
Pharmacy Intervention Comments: Discharge counseling completed at bedside with patient. Discussed new medications (metoprolol and atorvastatin), continued medications, and discontinued medications (azithromycin, methylprednisolone, and simvastatin). Overviewed indication and possible side effects/mitigation strategies for each new medication. Patient verbalized understanding and has no questions or concerns at this time.
--- NOTE | 2022-09-07 13:30 | CARE MANAGER ---
Contacted patient related to hospital discharge. Patient picked up medications and is feeling better. He is aware of his follow up appointments and denies any questions or concerns. FLORENCE Boyd
== END 2022-09-06 16:29 | disposition home or self-care (01) ==
LOC: ER 20:40 → 2ND 21:41
PROVIDERS: Internal Medicine; Nurse Practitioner Family; Admitting Provider Internal Medicine Adolescent Medicine; Emergency Provider Emergency Medicine; PCP Emergency Medicine; Visit Provider Internal Medicine Adolescent Medicine
DX: I25.110 Atherosclerotic heart disease of native coronary artery with unstable angina pectoris (principal); J44.9 Chronic obstructive pulmonary disease, unspecified; F17.210 Nicotine dependence, cigarettes, uncomplicated; E78.5 Hyperlipidemia, unspecified; K21.9 Gastro-esophageal reflux disease without esophagitis; I10 Essential (primary) hypertension; G62.9 Polyneuropathy, unspecified; G89.29 Other chronic pain; M54.9 Dorsalgia, unspecified; Z79.899 Other long term (current) drug therapy
CPT/HCPCS: G0378; 36415; 71046; 71275; 80048; 80061; 84484; 85025; 85378; 93005; 93306; 93458; 99152; 99285; C1725; C1769; C9803; J1644; J2405; Q9967; U0003; U0005

== ENCOUNTER 2022-09-25 08:06 | Day surgery (SDC) | payer MEDICARE, SELFPAY ==
[2022-09-25 08:40] VITALS: BP 134/81; PULSE 67; RESP 20; TEMP 36.4; O2SAT 97; BMI 20.9
--- NOTE | 2022-09-25 08:53 | EXP.ANES.CKL ---
[facility] Disclaimer: The information contained in this section may have been updated after the patient was seen, as this information can be updated by other users. Medical History Back pain COPD (chronic obstructive pulmonary disease) GERD (gastroesophageal reflux disease) Hyperlipidemia Neuropathy Tobacco abuse Surgical History H/O knee surgery H/O wrist surgery Family History Other Heart disease Social History (Updated 09/25/22 @ 08:37 by Keren Blair RN) Smoking Status: Current every day smoker tobacco type: cigarettes packs per day: 1 years smoked: 30 alcohol intake: never substance use type: former substance user and opiates current occupational status: employed Travel in the last 8 weeks: None household members: significant other housing: house lives independently: Yes marital status: caffeine: Yes special stan needs: No agree to transfusion: No do you feel safe at home: Yes victim of physical abuse: No victim of emotional abuse: No victim of sexual abuse: No would you like helpful sources: No [facility] Anesthesia Checklist Patient Identification Patient Identification: Arm Band Structural Data Admitted From: Home Planned Operative Procedure/s: Colonoscopy Consent for Planned Operative Procedure(s) Verified: Yes Verified Documents: Surgical Consent and History and Physical NPO Status Verified Time NPO: 00:00 Additional verifications Anesthesia Reactions: No Airway Assessment C-Spine Mobility Assessed: Yes TMJ Mobility Assessed: Yes Dentition: Edentulous Neurological Assessment Level of Consciousness: Awake and Alert Anesthesia Plan Anesthesia Risk discussed: Yes Anesthesia Plan: Verified ASA Class: II Anesthesia Type: MAC
[2022-09-25 09:05] VITALS: O2SAT 98
[2022-09-25 09:26] VITALS: BP 91/58; PULSE 59; RESP 18; TEMP 36.5; O2SAT 97
--- NOTE | 2022-09-25 09:28 | P.PCN_ITS ---
Procedure: Date: 09/25/22 Patient Date of :: 1970 Procedure Performed:: Colonoscopy Indications:: Screening Performing Provider:: David Lovell MD Referring Provider:: . Sedation:: Monitored anesthesia care Procedure:: After informed consent was obtained the patient was taken to the endoscopy suite. Sedation ensued after the patient was transferred to the left lateral decubitus position. Pulse, blood pressure, and oxygen saturation were monitored throughout the procedure. Digital rectal exam revealed no significant abnormality. The colonoscope was placed in position. The entire colon was eval uated. The colonoscope was carefully removed and the patient was transferred to recovery in stable condition. Please see findings and specimens below for detail. Findings:: Bowel preparation poor Specimens:: None Recommendations:: Repeat colonoscopy in 6-12 months with extended bowel preparation Complications:: No immediate with the exception of poor bowel preparation limiting visualization Estimated blood obtained (mL): 0
[2022-09-25 09:36] VITALS: BP 132/96; PULSE 60; RESP 18; O2SAT 99
[2022-09-25 09:46] VITALS: BP 127/90; PULSE 68; RESP 18; O2SAT 97
[2022-09-25 09:56] VITALS: BP 120/82; PULSE 74; RESP 18; O2SAT 96
== END 2022-09-25 10:00 | disposition home or self-care (01) ==
PROVIDERS: PCP Emergency Medicine; Visit Provider Surgery
PROC: 0DJD8ZZ Inspection of Lower Intestinal Tract, Via Natural or Artificial Opening Endoscopic (ICD-10-PCS; principal; 2022-09-25 08:30)
DX: Z12.11 Encounter for screening for malignant neoplasm of colon (principal); Z91.199 Patient's noncompliance with other medical treatment and regimen due to unspecified reason; Z79.899 Other long term (current) drug therapy
CPT/HCPCS: G0121

== ENCOUNTER → 2023-08-09 23:00 | Outpatient (CLI) | payer MEDICARE, SELFPAY ==
[2023-08-09 19:08] LABS: Amphetamine/Metha Screen,Urine Negative ng/ml (<1000); Barbiturates Screen,Urine Negative ng/ml (<200)
[2023-08-09 19:09] LABS: Benzodiazepines Screen,Urine Negative ng/ml (<200)
[2023-08-09 19:10] LABS: Cannabinoid Screen,Urine Negative ng/ml (<50)
[2023-08-09 19:12] LABS: Phencyclidine Screen,Urine Negative ng/ml (<25)
[2023-08-09 21:01] LABS: Cocaine Screen,Urine Negative ng/ml (<300)
[2023-08-09 21:02] LABS: Methadone Screen,Urine Negative ng/ml (<300); Opiate Screen,Urine Positive ng/ml (<300)
== END ==
PROVIDERS: PCP Emergency Medicine; Visit Provider Emergency Medicine
DX: F19.11 Other psychoactive substance abuse, in remission (principal); Z79.899 Other long term (current) drug therapy
CPT/HCPCS: 80305